=== PATIENT | male | born 1990 | race Caucasian/White ===

== ENCOUNTER 2021-12-07 18:46 | Emergency (ER) | payer OTHER ==
[2021-12-07] MEDS ORDERED: SODIUM CHLORIDE 0.9% 1,000 ML IV STA ×2 (19:09→20:55)
[2021-12-07] MEDS ORDERED: LORazepam 2 MG/ML INJ IV PRN ×3 (19:11)
[2021-12-07] MEDS ORDERED: THIAMINE 100 MG/ML 2 ML VIAL IM STA (19:11)
[2021-12-07] MEDS: THIAMINE 100 MG TAB PO SCH (19:45)
[2021-12-07 19:47] LABS: Basophils # (A) 0.1 k/uL (0-0.2); Basophils % (A) 1 %; Eosinophils # (A) 0.1 k/uL (0-0.7); Eosinophils % (A) 1 %; HCT 47.8 % (39.0-53.0); HGB 16.4 gm/dL (13.0-17.5); Lymphocytes # (A) 2.5 k/uL (1.0-4.8); Lymphocytes % (A) 34 %; MCH 30.2 pg (25.0-35.0); MCHC 34.2 g/dL (31.0-37.0); MCV 88.2 fL (80.0-100.0); Mean Platelet Volume 7.5; Monocytes # (A) 0.3 k/uL (0-1.0); Monocytes % (A) 4 %; Neutrophils # (A) 4.3 k/uL (1.3-7.7); Neutrophils % (A) 59 %; Platelet Count 236 k/uL (150-450); RBC 5.41 m/uL (4.30-5.90); RDW 11.6 % (11.5-15.5); WBC 7.4 k/uL (3.8-10.6)
[2021-12-07 20:08] LABS: ALT 19 U/L (4-49); AST 30 U/L (17-59); African American GFR (CKD) >90 (>60 ml/min/1.73 sqM); Albumin 4.9 g/dL (3.5-5.0); Alkaline Phosphatase 71 U/L (38-126); Anion Gap 11 mmol/L; Blood Urea Nitrogen 8 mg/dL (9-20); Calcium 9.5 mg/dL (8.4-10.2); Carbon Dioxide 26 mmol/L (22-30); Chloride 109 mmol/L (98-107); Glucose 107 mg/dL (74-99); Magnesium 1.9 mg/dL (1.6-2.3); Non-African American GFR(CKD) >90 (>60 ml/min/1.73 sqM); Potassium 3.9 mmol/L (3.5-5.1); Sodium 146 mmol/L (137-145); Total Bilirubin 0.5 mg/dL (0.2-1.3); Total Protein 8.2 g/dL (6.3-8.2)
[2021-12-07 20:10] LABS: Alcohol 252 mg/dL
--- NOTE | 2021-12-07 20:17 | CT ---
EXAMINATION TYPE: CT brain wo con DATE OF EXAM: 12/07/2021 COMPARISON: None HISTORY: delerium CT DLP: 1159.4 mGycm Automated exposure control for dose reduction was used. Ventricles have normal size. There is no mass effect or midline shift. There is no sign of intracrani al hemorrhage. Calvarium is intact. There is no evidence of cerebral edema. IMPRESSION: Normal unenhanced head CT scan.
[2021-12-07 20:49] LABS: Amphetamine Screen,Urine Not Detected (NotDetected); Barbiturate Screen,Urine Not Detected (NotDetected); Benzodiazepines Screen,Urine Not Detected (NotDetected); Cocaine Screen,Urine Not Detected (NotDetected); Methadone Screen, Urine Not Detected (NotDetected); Opiate Screen,Urine Not Detected (NotDetected); Oxycodone Screen, Urine Not Detected (NotDetected); Phencyclidine Screen,Urine Not Detected (NotDetected); Tricyclic Antidepressant,Urine Not Detected (NotDetected); Urn Cannabinoid Scrn Not Detected (NotDetected)
[2021-12-07] MEDS ORDERED: NALOXONE 0.4 MG/ML 1 ML VIAL IV PRN (20:53)
--- NOTE | 2021-12-07 22:42 | ED ---
General Adult HPI - General Chief complaint: Alcohol Stated complaint: Unknown Time Seen by Provider: 12/07/21 18:50 Source: patient, RN notes reviewed, old records reviewed Mode of arrival: ambulatory Limitations: no limitations - History of Present Illness Initial comments: Patient is a 31-year-old male with past medical history remarkable for alcohol abuse, alcohol withdrawal who presents emergency department after being found lying down in the hospital lobby. He states he believes he [place]. He states he relapsed and began drinking over the last 24 hours hard liquor. Denies any other drug use. Smokes tobacco. Denies any suicidal or homicidal ideations, attempts, plans. Denies any visual or auditory hallucinations. Does have a history of alcohol withdrawals. Currently states he is not feeling like his withdrawals. States he felt like he was going to lay down on the ground and fall sleep in the lobby which is why he was on the ground initially. Was conscious when he was found. Unknown if he fell. Has no acute trauma or injuries at this time. His no other acute complaints at this time. Is interested in outpatient rehab upon discharge. He is amenable to admission if necessary. He otherwise has no acute complaints at this time, including denying chest pain, shortness of breath, abdominal pain, nausea, vomiting, diarrhea. There is any fevers, chills, sick contacts. - Related Data Home Medications Medication Instructions Recorded Confirmed No Known Home Medications 12/07/21 12/07/21 Allergies Allergy/AdvReac Type Severity Reaction Status Date / Time No Known Allergies Allergy Verified 12/07/21 20:56 Review of Systems ROS Statement: Those systems with pertinent positive or pertinent negative responses have been documented in the HPI. Review of Systems: CONST: Denies fever EYES: Denies blurry vision ENT: Denies nasal congestion C/V: Denies Chest pain RESP: Denies shortness of breath GI: Denies abdominal pain : Denies dysuria SKIN: Denies rash. MSK: Denies joint pain. NEURO: Denies headache PSYCH: Denies suicidal and homicidal ideations/plans/attempts. Denies visual or auditory hallucinations. ROS Other: All systems not noted in ROS Statement are negative. Past Medical History Past Medical History: No Reported History Additional Past Medical History / Comment(s): ETOH abuse History of Any Multi-Drug Resistant Organisms: None Reported Past Surgical History: No Surgical Hx Reported Past Anesthesia/Blood Transfusion Reactions: No Reported Reaction Past Psychological History: Bipolar Smoking Status: Current every day smoker Past Alcohol Use History: Abuse, Daily Past Drug Use History: None Reported General Exam - General Exam Comments Initial Comments: General: Appears in no acute distress. Patient is acutely intoxicated with alcohol. HEAD: Normal with no signs of head trauma. No step-offs or deformities of the skull. Negative hernandez sign. Negative raccoon eye. EYES: PERRLA, EOMI, conjunctiva normal, no discharge. Pupils are 3 mm and equal bilaterally. ENT: Hearing grossly intact, normal oropharynx. RESPIRATORY: Clear breath sounds bilaterally. No wheezes, rales, or rhonchi. C/V: Mildly tachycardic with a regular rhythm. S1 and S2 auscultated. Peripheral pulses 2+ intact. ABD: Abd is soft, nontender, nondistended EXT: Normal range of motion, no obvious deformity SKIN: No rashes or lesions observed on exposed skin. NEURO: Alert and oriented x 4. Cranial nerves II-XII intact. No focal sensory or strength deficits. GCS is 15, as he is acutely intoxicated with alcohol. NIH is 0. Limitations: no limitations Course Vital Signs 12/07/21 12/07/21 18:54 21:25 Temperature 98.5 F Pulse Rate 109 H 88 Respiratory 18 18 Rate Blood Pressure 97/57 112/82 O2 Sat by Pulse 98 95 Oximetry Medical Decision Making - Medical Decision Making Based on the patient's presentation and physical exam, he does appear acutely intoxicated with alcohol. However he was found laying down in the lobby and he is having some questioning about how he initially got there. Therefore we will obtain CT brain without contrast in addition to basic labs, screening EKG. He'll be given fluid boluses. He was in agreement with this plan. Patient's EKG showed no signs of acute ischemia. Laboratory studies were remarkable for a mild hypernatremia of 146 and hyperchloremia of 109. UDS is negative. Covid is negative. Serum alcohol level is 252. CT brain showed no acute process. On reevaluation, patient remains acutely intoxicated with alcohol, with a level greater than 250. I discussed with him admission with discharge pending sobriety and further observation to ensure he does not enter alcohol withdrawals. He was in agreement this plan. Alcohol withdrawal protocol was ordered. I spoke with the admitting physician, Dr. Ibarra who accepted the patient. Patient was therefore admitted in stable condition to observation telemetry. - Lab Data Result diagrams: 12/07/21 19:34 12/07/21 19:34 Lab Results 12/07/21 12/07/21 12/07/21 Range/Units 19:34 19:34 20:16 WBC 7.4 (3.8-10.6) k/uL RBC 5.41 (4.30-5.90) m/uL Hgb 16.4 (13.0-17.5) gm/dL Hct 47.8 (39.0-53.0) % MCV 88.2 (80.0-100.0) fL MCH 30.2 (25.0-35.0) pg MCHC 34.2 (31.0-37.0) g/dL RDW 11.6 (11.5-15.5) % Plt Count 236 (150-450) k/uL MPV 7.5 Neutrophils % 59 % Lymphocytes % 34 % Monocytes % 4 % Eosinophils % 1 % Basophils % 1 % Neutrophils # 4.3 (1.3-7.7) k/uL Lymphocytes # 2.5 (1.0-4.8) k/uL Monocytes # 0.3 (0-1.0) k/uL Eosinophils # 0.1 (0-0.7) k/uL Basophils # 0.1 (0-0.2) k/uL Sodium 146 H (137-145) mmol/L Potassium 3.9 (3.5-5.1) mmol/L Chloride 109 H (98-107) mmol/L Carbon Dioxide 26 (22-30) mmol/L Anion Gap 11 mmol/L BUN 8 L (9-20) mg/dL Creatinine 0.70 (0.66-1.25) mg/dL Est GFR (CKD-EPI)AfAm >90 (>60 ml/min/1.73 sqM) Est GFR (CKD-EPI)NonAf >90 (>60 ml/min/1.73 sqM) Glucose 107 H (74-99) mg/dL Calcium 9.5 (8.4-10.2) mg/dL Magnesium 1.9 (1.6-2.3) mg/dL Total Bilirubin 0.5 (0.2-1.3) mg/dL AST 30 (17-59) U/L ALT 19 (4-49) U/L Alkaline Phosphatase 71 (38-126) U/L Total Protein 8.2 (6.3-8.2) g/dL Albumin 4.9 (3.5-5.0) g/dL Urine Opiates Screen Not Detected (NotDetected) Ur Oxycodone Screen Not Detected (NotDetected) Urine Methadone Screen Not Detected (NotDetected) Ur Propoxyphene Screen Not Detected (NotDetected) Ur Barbiturates Screen Not Detected (NotDetected) U Tricyclic Antidepress Not Detected (NotDetected) Ur Phencyclidine Scrn Not Detected (NotDetected) Ur Amphetamines Screen Not Detected (NotDetected) U Methamphetamines Scrn Not Detected (NotDetected) U Benzodiazepines Scrn Not Detected (NotDetected) Urine Cocaine Screen Not Detected (NotDetected) U Marijuana (THC) Screen Not Detected (NotDetected) Serum Alcohol 252 H* mg/dL - EKG Data -: EKG Interpreted by Me EKG Comments: 12-lead Electrocardiogram Interpretation Note EKG was reviewed and interpreted by myself. 12-lead ECG performed at 1925 is interpreted by me as revealing normal sinus rhythm at a rate of 92 beats per minute. [place] is normal. KS interval is 162 ms, QRS ration is 86 ms, QTc is 422 ms.. There were no ST or T wave abnormalities to suggest myocardial ischemia or injury. R wave progression across the precordium was satisfactory. By my interpretation this EKG is non-diagnostic for acute ischemia. Disposition Clinical Impression: Alcoholic intoxication Disposition: ADMITTED IP TO THIS HOSP Condition: Stable
--- NOTE | 2021-12-07 23:29 | P.HPIM ---
History of Present Illness H&P Date: 12/07/21 The patient is a 31 yo M with a PMH of EtOH abuse who presented to the ED after he was found laying down in [facility] lobby. The patient notes that he had recently relapsed from alcohol use, drinking about 2 pints of hard liquor in the past 24 hours. He reports being sober for 2 weeks and is interested in going back into therapy. He denied falls or loss of consciousness and noted that he laid down on the ground to sleep. He was intoxicated when he was found. He denied any physical complaints at the time of interview. Denied chest pain, SOB, fever, chills, cough, nausea, vomiting, abdominal pain, or diarrhea. He reports a history of being shaky with alcohol withdrawal in the past but denied withdrawal seizures or DTs. Laboratory evaluated noted a serum alcohol level of 252. A brain CT was unremarkable. Review of systems: Pertinent positives and negatives as discussed in HPI, a complete review of systems was performed and all other systems are negative. Physical examination: General: non toxic, no distress, appears at stated age, normal weight Derm: no unusual rashes/lesions no unusual ecchymoses, warm, dry Head: atraumatic, normocephalic, symmetric Eyes: EOMI, no lid lag, anicteric sclera, pupils equal round reactive to light ENT: Nose and ears atraumatic, no thrush, no pharyngeal erythema Neck: No thyromegaly, no cervical lymphadenopathy, trachea midline, supple Mouth: no lip lesion, mucus membranes moist Cardiovascular: S1S2 reg, no murmur, positive posterior tibial pulse bilateral, no edema, capillary refill less than 2 seconds Lungs: CTA bilateral, no rhonchi, no rales , no accessory muscle use Abdominal: soft, nontender to palpation, no guarding, no appreciable organomegaly, normal bowel sounds Ext: no gross muscle atrophy, muscle strength 5 out of 5 in all 4 extremities grossly, no contractures, Neuro: CN II-XI grossly intact, light touch intact all 4 extremities, finger to nose within normal limits, no outstretched hand tremors or tongue fasciculations Psych: Alert, oriented, appropriate affect Assessment/plan Alcohol intoxication -CIWA protocol -Thiamine -IVFs -Seizure and fall precautions -Advised on importance of cessation DVT prophylaxis -Heparin subq The patient is admitted with an anticipated less than 2 midnight stay for evaluation of Etoh abuse CODE STATUS: Full Code Discussed with: Patient Anticipated discharge date: in am Anticipated discharge place: Home Past Medical History Past Medical History: No Reported History Additional Past Medical History / Comment(s): ETOH abuse History of Any Multi-Drug Resistant Organisms: None Reported Past Surgical History: No Surgical Hx Reported Past Anesthesia/Blood Transfusion Reactions: No Reported Reaction Past Psychological History: Bipolar Smoking Status: Current every day smoker Past Alcohol Use History: Abuse, Daily Past Drug Use History: None Reported - Past Family History Father Family Medical History: Liver Disease Medications and Allergies Home Medications Medication Instructions Recorded Confirmed Type No Known Home Medications 12/07/21 12/07/21 History Allergies Allergy/AdvReac Type Severity Reaction Status Date / Time No Known Allergies Allergy Verified 12/07/21 20:56 Physical Exam Vitals: Vital Signs Temp Pulse Resp BP Pulse Ox 12/07/21 21:25 88 18 112/82 95 12/07/21 18:54 98.5 F 109 H 18 97/57 98 Intake and Output 12/07/21 12/07/21 12/08/21 14:59 22:59 06:59 Other: Weight 77.111 kg Results CBC & Chem 7: 12/07/21 19:34 12/07/21 19:34 Labs: Abnormal Lab Results - Last 24 Hours (Table) 12/07/21 Range/Units 19:34 Sodium 146 H (137-145) mmol/L Chloride 109 H (98-107) mmol/L BUN 8 L (9-20) mg/dL Glucose 107 H (74-99) mg/dL Serum Alcohol 252 H* mg/dL Thrombosis Risk Factor Assmnt - Choose All That Apply Any of the Below Risk Factors Present?: Yes Each Factor Represents 1 point: Obesity (BMI >25) Other Risk Factors: No Other congenital or acquired thrombophilia - If yes, enter type in comment: No Thrombosis Risk Factor Assessment Total Risk Factor Score: 1 Thrombosis Risk Factor Assessment Level: Low Risk
[2021-12-08] MEDS: HEPARIN SODIUM,PORCINE/PF 5,000 UNIT/0.5 ML SYRINGE SQ SCH ×3 (01:29→16:52)
[2021-12-08] MEDS: THIAMINE 100 MG TAB PO SCH ×2 (08:26→16:52)
--- NOTE | 2021-12-08 16:47 | P.PN ---
Progress Note - Text Progress Note Date: 12/08/21 (delayed charting seen at 1145) Patient is an 89-year-old male past medical history of alcohol abuse who presented to the ER with severe alcohol intoxication. Initial workup was negative. He admits to falling off the bandwagon after being sober for 51 days. Plan is to discharge him to an active alcohol treatment program in the morning. Patient seen and examined at bedside. Denies any chest pain or shortness of breath. Having some nausea and some headache. Feels like he has a bad hangover. General: non toxic, no distress, appears at stated age Derm: warm, dry Head: atraumatic, normocephalic, symmetric Eyes: EOMI, no lid lag, anicteric sclera Mouth: no lip lesion, mucus membranes moist Cardiovascular: S1S2 reg, no murmur, positive posterior tibial pulse bilateral, Lungs: CTA bilateral, no rhonchi, no rales , no accessory muscle use Abdominal: soft, nontender to palpation, no guarding, no appreciable organomegaly Ext: no gross muscle atrophy, no edema, no contractures Neuro: CN II-XI grossly intact, no focal neuro deficits Psych: Alert, oriented, appropriate affect Alcohol intoxication Hypernatremia - CIWA, Heparin SC, Likely discharge in AM
[2021-12-09] MEDS: HEPARIN SODIUM,PORCINE/PF 5,000 UNIT/0.5 ML SYRINGE SQ SCH ×2 (00:32→08:13)
[2021-12-09 08:09] VITALS: BP 114/75; PULSE 66; RESP 18; TEMP 97.5
[2021-12-09] MEDS: THIAMINE 100 MG TAB PO SCH (08:13)
--- NOTE | 2021-12-09 15:30 | P.DS ---
Providers Date of admission: 12/07/21 20:53 Expected date of discharge: 12/09/21 Attending physician: Jax Ibarra MD Primary care physician: Stated None Hospital Course: Discharge Diagnosis: Alcohol intoxication Hypernatremia Hospital Course: Patient is an 31-year-old male past medical history of alcohol abuse who presented to the ER with severe alcohol intoxication. Initial workup was negative. He admits to falling off the bandwagon after being sober for 51 days. Patient did well and was determined stable for discharge. He is going into an inpatient treatment program. Patient seen and examined at bedside. Doing much better. Nausea is resolved and headache is resolved. Excited to be going back to treatment. Vital signs reviewed and stable. General: non toxic, no distress, appears at stated age Derm: warm, dry Head: atraumatic, normocephalic, symmetric Eyes: EOMI, no lid lag, anicteric sclera Mouth: no lip lesion, mucus membranes moist Cardiovascular: S1S2 reg, no murmur, positive posterior tibial pulse bilateral, Lungs: CTA bilateral, no rhonchi, no rales , no accessory muscle use Abdominal: soft, nontender to palpation, no guarding, no appreciable organomegaly Ext: no gross muscle atrophy, no edema, no contractures Neuro: CN II-XI grossly intact, no focal neuro deficits Psych: Alert, oriented, appropriate affect A total of 17 minutes of time were spent preparing this complex discharge summary . Patient Condition at Discharge: Stable Plan - Discharge Summary Discharge Rx Participant: Yes New Discharge Prescriptions: Continue No Known Home Medications Discharge Medication List No Known Home Medications 12/07/21 [History] Follow up Appointment(s)/Referral(s): None,Stated [Primary Care Provider] - 1 Week [facility] [NON-STAFF] - 1 Week Patient Instructions/Handouts: Alcohol Intoxication (DC) Activity/Diet/Wound Care/Special Instructions: STOP AT HOME [address], [facility] [address] TO P/U BELONGINGS (PER [employer] WORK)THEN TO [facility], [facility], [address] [facility] [id number]. Discharge Disposition: HOME SELF-CARE
== END 2021-12-09 10:47 | disposition home or self-care (01) ==
LOC: EC 18:46 → 6NMEDSUR 20:53
PROVIDERS: ADMIT Internal Medicine; ATTEND Internal Medicine
DX: F10.129 Alcohol abuse with intoxication, unspecified (principal); F31.9 Bipolar disorder, unspecified; F17.200 Nicotine dependence, unspecified, uncomplicated; Z20.822 Contact with and (suspected) exposure to COVID-19; Y90.8 Blood alcohol level of 240 mg/100 ml or more
CPT/HCPCS: 99285; 96360; 96361; 36415; 93005; 80053; 83735; 85025; 80306; 87635; 70450; G0378 ×3; G0480; J1644 ×2; 80320

== ENCOUNTER 2022-04-15 13:00 | Observation (INO) | payer OTHER ==
[2022-04-15] MEDS ORDERED: LORazepam 1 MG TAB PO STA (13:16)
--- NOTE | 2022-04-15 13:20 | ED ---
General Adult HPI - General Chief complaint: Altered Mental Status Stated complaint: mental health Time Seen by Provider: 04/15/22 13:05 Source: patient, RN notes reviewed, old records reviewed Mode of arrival: ambulatory Limitations: no limitations - History of Present Illness Initial comments: This is a 32-year-old male who presents emergency Department complaining that he wants to kill himself. Patient states she was just released from [facility] and since then he's got up and drank heavily and wants to kill himself and wants to jump in front of a truck to kill himself. Patient is very angry and somewhat hostile in the room when I interview him. Patient states he doesn't even know why he came in case he wishes he was still. Patient denies any drug use currently and states it's been about 2 weeks but he pretty much we'll do any drugs on a normal basis. Patient denies any physical complaints today. Patient denies any chest pain difficulty breathing shortest breath per patient denies any fever chills or cough per patient denies abdominal pain patient denies nausea vomiting diarrhea. - Related Data Home Medications Medication Instructions Recorded Confirmed No Known Home Medications 12/07/21 12/07/21 Allergies Allergy/AdvReac Type Severity Reaction Status Date / Time No Known Allergies Allergy Verified 04/15/22 13:06 Review of Systems ROS Statement: Those systems with pertinent positive or pertinent negative responses have been documented in the HPI. ROS Other: All systems not noted in ROS Statement are negative. Past Medical History Past Medical History: No Reported History Additional Past Medical History / Comment(s): ETOH abuse History of Any Multi-Drug Resistant Organisms: None Reported Past Surgical History: No Surgical Hx Reported Past Anesthesia/Blood Transfusion Reactions: No Reported Reaction Past Psychological History: Bipolar Smoking Status: Current every day smoker Past Alcohol Use History: Abuse, Daily Past Drug Use History: None Reported - Past Family History Father Family Medical History: Liver Disease General Exam - General Exam Comments Initial Comments: GENERAL: Patient is well-developed and well-nourished. Patient is nontoxic and well- hydrated and is in no acute distress. Patient appears intoxicated ENT: Neck is soft and supple. No significant lymphadenopathy is noted. Oropharynx is clear. Moist mucous membranes. Neck has full range of motion without eliciting any pain. EYES: The sclera were anicteric and conjunctiva were pink and moist. Extraocular movements were intact and pupils were equal round and reactive to light. Eyelids were unremarkable. PULMONARY: Unlabored respirations. Good breath sounds bilaterally. No audible rales rhonchi or wheezing was noted. CARDIOVASCULAR: There is a regular rate and rhythm without any murmurs gallops or rubs. ABDOMEN: Soft and nontender with normal bowel sounds. SKIN: Skin is clear with no lesions or rashes and otherwise unremarkable. NEUROLOGIC: Patient is alert and oriented x3. Cranial nerves II through XII are grossly intact. Motor and sensory are also intact. Normal speech, volume and content. Symmetrical smile. MUSCULOSKELETAL: Normal extremities with adequate strength and full range of motion. LYMPHATICS: No significant lymphadenopathy is noted PSYCHIATRIC: Patient is angry and a little bit hostile and he is also very depressed stating over and over again that he wants to kill himself. Patient's plan is to jump in front of traffic Limitations: no limitations Course Vital Signs 04/15/22 13:01 Temperature 97 F L Pulse Rate 101 H Respiratory 20 Rate Blood Pressure 119/80 O2 Sat by Pulse 97 Oximetry Medical Decision Making - Medical Decision Making Patient received Ativan in the emergency department. Patient's alcohol was 265. I spoke with some physicians agreed to admit the patient admitted the patient I consulted psychiatry. - Lab Data Result diagrams: 04/15/22 13:46 04/15/22 13:46 Lab Results 04/15/22 04/15/22 Range/Units 13:46 13:46 WBC 8.0 (3.8-10.6) k/uL RBC 5.27 (4.30-5.90) m/uL Hgb 16.0 (13.0-17.5) gm/dL Hct 46.8 (39.0-53.0) % MCV 88.8 (80.0-100.0) fL MCH 30.4 (25.0-35.0) pg MCHC 34.2 (31.0-37.0) g/dL RDW 12.9 (11.5-15.5) % Plt Count 323 (150-450) k/uL MPV 7.5 Neutrophils % 58 % Lymphocytes % 32 % Monocytes % 7 % Eosinophils % 0 % Basophils % 1 % Neutrophils # 4.6 (1.3-7.7) k/uL Lymphocytes # 2.6 (1.0-4.8) k/uL Monocytes # 0.6 (0-1.0) k/uL Eosinophils # 0.0 (0-0.7) k/uL Basophils # 0.0 (0-0.2) k/uL Sodium 146 H (137-145) mmol/L Potassium 4.2 (3.5-5.1) mmol/L Chloride 105 (98-107) mmol/L Carbon Dioxide 25 (22-30) mmol/L Anion Gap 16 mmol/L BUN 11 (9-20) mg/dL Creatinine 0.90 (0.66-1.25) mg/dL Est GFR (CKD-EPI)AfAm >90 (>60 ml/min/1.73 sqM) Est GFR (CKD-EPI)NonAf >90 (>60 ml/min/1.73 sqM) Glucose 112 H (74-99) mg/dL Calcium 9.2 (8.4-10.2) mg/dL Magnesium 2.1 (1.6-2.3) mg/dL Total Bilirubin 0.4 (0.2-1.3) mg/dL AST 26 (17-59) U/L ALT 35 (4-49) U/L Alkaline Phosphatase 86 (38-126) U/L Total Protein 8.4 H (6.3-8.2) g/dL Albumin 5.1 H (3.5-5.0) g/dL Serum Alcohol 265 H* mg/dL Disposition Clinical Impression: Alcohol intoxication, Depression, Suicidal ideations Disposition: ADMITTED IP TO THIS [facility] Referrals: None,Stated [Primary Care Provider] - 1-2 days Time of Disposition: 14:28
[2022-04-15] MEDS ORDERED: LORazepam 2 MG/ML INJ IV STA (13:21)
[2022-04-15] MEDS ORDERED: SODIUM CHLORIDE 0.9% 1,000 ML IV ONE ×2 (13:21→14:31)
[2022-04-15 14:12] LABS: ALT 35 U/L (4-49); AST 26 U/L (17-59); African American GFR (CKD) >90 (>60 ml/min/1.73 sqM); Albumin 5.1 g/dL (3.5-5.0); Alkaline Phosphatase 86 U/L (38-126); Anion Gap 16 mmol/L; Blood Urea Nitrogen 11 mg/dL (9-20); Calcium 9.2 mg/dL (8.4-10.2); Carbon Dioxide 25 mmol/L (22-30); Chloride 105 mmol/L (98-107); Glucose 112 mg/dL (74-99); Magnesium 2.1 mg/dL (1.6-2.3); Non-African American GFR(CKD) >90 (>60 ml/min/1.73 sqM); Potassium 4.2 mmol/L (3.5-5.1); Sodium 146 mmol/L (137-145); Total Bilirubin 0.4 mg/dL (0.2-1.3); Total Protein 8.4 g/dL (6.3-8.2)
[2022-04-15 14:14] LABS: Alcohol 265 mg/dL
[2022-04-15 14:22] LABS: Basophils % (A) 1 %; Eosinophils % (A) 0 %; HCT 46.8 % (39.0-53.0); Lymphocytes # (A) 2.6 k/uL (1.0-4.8); Lymphocytes % (A) 32 %; MCH 30.4 pg (25.0-35.0); MCHC 34.2 g/dL (31.0-37.0); MCV 88.8 fL (80.0-100.0); Mean Platelet Volume 7.5; Monocytes # (A) 0.6 k/uL (0-1.0); Monocytes % (A) 7 %; Neutrophils # (A) 4.6 k/uL (1.3-7.7); Neutrophils % (A) 58 %; Platelet Count 323 k/uL (150-450); RBC 5.27 m/uL (4.30-5.90); RDW 12.9 % (11.5-15.5)
[2022-04-15] MEDS ORDERED: THIAMINE 100 MG/ML 2 ML VIAL IM STA (14:33)
[2022-04-15] MEDS ORDERED: LORazepam 2 MG/ML INJ IV PRN ×3 (14:33)
[2022-04-15 15:18] LABS: Amphetamine Screen,Urine Not Detected (NotDetected); Barbiturate Screen,Urine Not Detected (NotDetected); Benzodiazepines Screen,Urine Not Detected (NotDetected); Cocaine Screen,Urine Not Detected (NotDetected); Methadone Screen, Urine Not Detected (NotDetected); Opiate Screen,Urine Not Detected (NotDetected); Oxycodone Screen, Urine Not Detected (NotDetected); Phencyclidine Screen,Urine Not Detected (NotDetected); Tricyclic Antidepressant,Urine Not Detected (NotDetected); Urn Cannabinoid Scrn Not Detected (NotDetected)
--- NOTE | 2022-04-15 15:57 | P.HPIM ---
History of Present Illness H&P Date: 04/15/22 History of Presenting Illness: Patient is a 32-year-old male with a past medical history of chronic alcohol abuse, bipolar disorder, and nicotine dependence. He presented to the emergency department intoxicated with reports that he wants to kill himself by jumping in front of a truck. Patient reports he was just discharged yesterday from [facility]. Patient reports after discharge he went to the post office to get his mail, mooney his check and alcohol so he could drink heavily throughout the night. Patient reports he just wants to kill himself and in a ddition to suicidal ideations with a plan, patient also reports feeling anxious and paranoid. Patient denies having verbal, tactile, or auditory hallucinations. Patient denies having any falls or injuries. Patient denies feeling homicidal. He denies having any other complaints including headache, lightheadedness, dizziness, changes in vision or hearing, chest pain, palpitations, or shortness of breath. Patient underwent full evaluation in the emergency department. CBC and CMP showing no significant abnormalities. Urine drug screen negative. Serum alcohol level was 265. Patient was admitted under our services with consultation to psychiatry. Patient to be admitted to observation unit until he is clinically sober and can be medically discharged to inpatient psychiatric unit. Review of systems: Pertinent positives and negatives as discussed in HPI, a complete review of systems was performed and all other systems are negative. Physical exam: Vital signs reviewed and stable. General: Nontoxic, no distress and appears stated age. Derm: Skin warm and dry, normal coloration for ethnicity. Head: Atraumatic, normocephalic and symmetric. Eyes: EOMs intact, no lid lag, and anicteric sclera Mouth: no lip lesions, mucus membranes moist Cardiovascular: regular rate and rhythm with normal S1S2, no murmur, positive posterior tibial pulses bilaterally, and cap refill < 2 seconds. Lungs: Respirations even, regular, and unlabored on room air. Lungs CTA bilaterally, no rhonchi, no rales, no wheezing, and no accessory muscle usage. Abdominal: soft, nontender to palpation, no guarding, no appreciable organomegaly Ext: ROM intact. No gross muscle atrophy, no edema, no contractures Neuro: Speech clear, face symmetrical and CN II-XII grossly intact with no noted focal neuro deficits Psych: Alert and oriented to person, place, time, and situation. Patient anxious with rapid and pressured speech at times. Patient did cooperate with assessment and answer questions appropriately. Assessment and Plan of Care: Alcohol intoxication -[facility] Protocol with symptom triggered medication management with benzodiazepines. -Thiamine 100 mg twice a day -Multivitamin daily -Folate 1 mg daily -Seizure, fall, aspiration, and elopement precautions in place. -Urine drug screen negative -Telemetry monitoring. Suicidal ideation with a plan Bipolar disorder -Consult to psychiatry -Suicide precautions Nicotine dependence -Recommend smoking cessation. -Nicotine patch. The patient is admitted with an anticipated less than 2 midnight stay for evaluation of alcohol intoxication CODE STATUS: Full code DVT prophylaxis: Lovenox Discussed with: Patient and RN Anticipated discharge date: Tomorrow Anticipated discharge place inpatient psychiatric unit A total of 42 minutes was spent on the care of this complex patient more than 50% of the time was spent in counseling and care coordination. Avtar Hobbs NP rendered care for this patient independently, reviewed the findings and plan as documented in the note above. I did not physically speak with or examine the patient on this date. Past Medical History Past Medical History: No Reported History Additional Past Medical History / Comment(s): ETOH abuse History of Any Multi-Drug Resistant Organisms: None Reported Past Surgical History: No Surgical Hx Reported Past Anesthesia/Blood Transfusion Reactions: No Reported Reaction Past Psychological History: Bipolar Smoking Status: Current every day smoker Past Alcohol Use History: Abuse, Daily Past Drug Use History: None Reported - Past Family History Father Family Medical History: Liver Disease Medications and Allergies Home Medications Medication Instructions Recorded Confirmed Type No Known Home Medications 12/07/21 04/15/22 History Allergies Allergy/AdvReac Type Severity Reaction Status Date / Time No Known Allergies Allergy Verified 04/15/22 14:51 Physical Exam Osteopathic Statement: *. No significant issues noted on an osteopathic structural exam other than those noted in the History and Physical/Consult. Vitals: Vital Signs Temp Pulse Resp BP Pulse Ox 04/15/22 13:01 97 F L 101 H 20 119/80 97 Intake and Output 04/15/22 04/15/22 04/15/22 06:59 14:59 22:59 Other: Weight 81.647 kg Results CBC & Chem 7: 04/15/22 13:46 04/15/22 13:46 Labs: Abnormal Lab Results - Last 24 Hours (Table) 04/15/22 Range/Units 13:46 Sodium 146 H (137-145) mmol/L Glucose 112 H (74-99) mg/dL Total Protein 8.4 H (6.3-8.2) g/dL Albumin 5.1 H (3.5-5.0) g/dL Serum Alcohol 265 H* mg/dL
[2022-04-16] MEDS: ENOXAPARIN 40 MG/0.4 ML SYRINGE SQ SCH ×2 (00:59→09:31)
[2022-04-16] MEDS ORDERED: MULTIVITAMINS, THERA 1 EACH TAB PO SCH (09:00)
[2022-04-16] MEDS ORDERED: FOLIC ACID 1 MG TAB PO SCH (09:00)
[2022-04-16] MEDS ORDERED: NICOTINE 21MG/24HR PATCH TRANSDERM SCH (09:00)
--- NOTE | 2022-04-16 09:11 | P.DS ---
Providers Date of admission: 04/15/22 14:31 Expected date of discharge: 04/16/22 Attending physician: Tash Gutiérrez DO Consults: 04/15/22 14:31 Consult Physician Urgent Consulting Provider: Asael Carl Consult Reason/Comments: Depression, suicidal ideations Do you want consulting provider notified?: Yes Primary care physician: Stated None Hospital Course: Discharge Diagnosis: Alcohol intoxication, alcohol level on presentation was 265. Patient hospitalized overnight for observation and detox, he is now clinically sober and stable for discharge at this. Suicidal ideation with a plan, maintain suicide precautions at all times. Pt being discharged inpatient psychiatric unit. Bipolar disorder Nicotine dependence Hospital Course: Patient is a 32-year-old male with a past medical history of chronic alcohol abuse, bipolar disorder, and nicotine dependence. He presented to the emergency department on 04/15/22 intoxicated with reports that he wants to kill himself and plans to do so by jumping in front of a truck. Patient reports he was just discharged the day prior from [facility]. Patient reports after discharge he went to the post office to get his mail, mooney his check and purchased alcohol so he could drink heavily throughout the night. Patient reports he drank so much because he just wants to kill himself. In addition to his suicidal ideations with a plan, the patient also reports feeling anxious and paranoid. Patient denies having verbal, tactile, or auditory hallucinations. Patient denies having any falls or injuries. Patient denies feeling homicidal. He denies having any other complaints including headache, lightheadedness, di zziness, changes in vision or hearing, chest pain, palpitations, or shortness of breath. Patient underwent full evaluation in the emergency department. CBC and CMP showing no significant abnormalities. Urine drug screen negative. Serum alcohol level was 265. Patient was admitted under our services with consultation to psychiatry. Patient was admitted to observation unit overnight for detox, he is now clinically sober and continues to report having suicidal ideations with a plan stating he wants to jump i front of a "[employer]" truck. Pt is medically stable, vital signs are unremarkable with blood pressure 113/63, heart rate 72, respiratory rate 20, temperature 97.6F, SpO2 of 95% on room air. Patient medically cleared and stable for discharge to inpatient psychiatric unit at this time. Physical exam: Vital signs reviewed and stable. General: Nontoxic, no distress and appears stated age. Derm: Skin warm and dry, normal coloration for ethnicity. Head: Atraumatic, normocephalic and symmetric. Eyes: EOMs intact, no lid lag, and anicteric sclera Mouth: no lip lesions, mucus membranes moist Cardiovascular: regular rate and rhythm with normal S1S2, no murmur, positive posterior tibial pulses bilaterally, and cap refill < 2 seconds. Lungs: Respirations even, regular, and unlabored on room air. Lungs CTA bilaterally, no rhonchi, no rales, no wheezing, and no accessory muscle usage. Abdominal: soft, nontender to palpation, no guarding, no appreciable organomegaly Ext: ROM intact. No gross muscle atrophy, no edema, no contractures Neuro: Speech clear, face symmetrical and CN II-XII grossly intact with no noted focal neuro deficits Psych: Alert and oriented to person, place, time, and situation. Patient calm and cooperative at this time, continues to report suicide ideation with a plan. A total of 31 minutes of time were spent preparing this complex discharge summary. Pt was discharged on 04/16/22 at 8:59 AM. I reviewed the documentation as provided by the ANURAG above, who is the original author of this note. I agree with the documented assessment and plan, with the following changes: none Patient Condition at Discharge: Stable Plan - Discharge Summary Discharge Rx Participant: Yes New Discharge Prescriptions: New Folic Acid 1 mg PO DAILY tab Multivitamins, Thera [Multivitamin (formulary)] 1 each PO DAILY tab Thiamine [Vitamin B-1] 100 mg PO BID-W/MEALS tab Nicotine 21Mg/24Hr Patch [Habitrol] 1 patch TRANSDERM DAILY patch Discharge Medication List Folic Acid 1 mg PO DAILY tab 04/16/22 [Rx] Multivitamins, Thera [Multivitamin (formulary)] 1 each PO DAILY tab 04/16/22 [Rx] Nicotine 21Mg/24Hr Patch [Habitrol] 1 patch TRANSDERM DAILY patch 04/16/22 [Rx] Thiamine [Vitamin B-1] 100 mg PO BID-W/MEALS tab 04/16/22 [Rx] Activity/Diet/Wound Care/Special Instructions: Patient is Medically Stable for Transfer to Inpatient Psychiatric Unit. Discharge Disposition: TRANSFER TO PSYCH HOSP/UNIT
[2022-04-16] MEDS: THIAMINE 100 MG TAB PO SCH ×2 (09:30→16:53)
--- NOTE | 2022-04-16 10:43 | P.CN ---
Psychiatric Consult - . Consult date: 04/16/22 Consult:: IDENTIFYING DATA: This patient is a single, unemployed, 32-year-old male with significant history of alcohol use disorder and depression who presents to the hospital with a chief complaint of suicidal ideation with a plan to get himself hit by a truck. HISTORY OF PRESENT ILLNESS: The patient presented to the hospital on 04/15/2022, to emergency department manager for suicidal ideation with plan to walk into traffic. Patient was notably intoxicated on presentation in the emergency department. The patient was admitted to the medical floor for evaluation and management of alcohol intoxication. Psychiatry has been consulted for his suicidal ideation. Upon evaluation on the medical floor, the patient continues to endorse significant symptoms of depression. He reports hopelessness, helplessness, low motivation, and suicidal ideation with a plan to walk into traffic. The patient reports that he was recently discharged from [facility] in [place] after a week long inpatient psychiatric admission for depression and suicidal ideation. He reports that he was started on Prozac however did not sisal picker any of his medications or continue with any outpatient services. He states that he is "sick of [facility]" and that is why he came to [place]. The patient reports that he has been feeling increasingly depressed and suicidal for most of his adult life. Further complicating his psychiatric symptoms is his heavy alcohol use. The patient reports that he has been drinking at least a pint of liquor per day. He states that his last drink was yesterday. The patient does not endorse any significant symptoms of bipolar disorder or history of overt manic episodes. The patient does report a significant history of substance use. He does state that he smokes a couple cigarettes per day. He drinks daily, approximately a pint of liquor per day for many years. He has had numerous rehabilitation stays with the last time being at [place] earlier this year. He is currently not open with any Alcoholics Anonymous or any outpatient substance abuse treatment. The patient reports that he has not been in adherent with much outpatient therapy or outpatient treatment as he constantly moved from place to place and is currently homeless. He reports that he has no belongings at all. The patient does report a history of polysubstance abuse. He states he last used methamphetamines approximately 2-3 weeks ago. He reports that he has dabbled with crack cocaine as well. The patient does report a significant history of neglect. He reports that his mother was a severe alcoholic. He states that he began drinking long side his mother when he was 15 years of age. He reports significant symptoms of cluster B personality disorder including chronic suicidal ideation, fears of abandonment, and mood dysregulation. PAST PSYCHIATRIC HISTORY: Patient has a history of depression and alcohol use disorder. The patient is unable to recall Prozac at this time. He reports multiple inpatient psychiatric admissions with the last time being within the last 2-3 weeks and [facility]. Patient denies any psychiatric outpatient follow-up. Patient reports prior suicide attempt by overdose many years ago. PAST MEDICAL HISTORY: Past Medical History: No Reported History Additional Past Medical History / Comment(s): ETOH abuse History of Any Multi-Drug Resistant Organisms: None Reported Past Surgical History: No Surgical Hx Reported Past Anesthesia/Blood Transfusion Reactions: No Reported Reaction Past Psychological History: Bipolar Smoking Status: Current every day smoker Past Alcohol Use History: Abuse, Daily Past Drug Use History: None Reported ALLERGIES: NO KNOWN DRUG ALLERGIES CHEMICAL DEPENDENCY HISTORY: as per HPI. FAMILY PSYCHIATRIC/SUBSTANCE USE HISTORY: The patient reports that his mother severe alcoholic. SOCIAL HISTORY: Patient was born and raised in [place] however moved around between [place], [place], [place], and [place]. He is currently homeless. He graduated from an [employer] program. He is single, never , and has no children. He reports no current legal issues. MENTAL STATUS EXAM: General Appearance: Patient appears to be stated age is alert, pleasant, and cooperative. Patient appears to have fair hygiene and grooming wearing hospital gown with fair eye contact. Multiple tattoos. Behavior: Patient is calmly lying in bed without any agitated behavior. Speech: Patient's speech is fluent and nonpressured. Mood/Affect: Patient reports their mood is "depressed", affect is congruent and constricted. Suicidality/Homicidality: Patient endorses suicidal ideation however denies any homicidal ideation. Perceptions: Patient denies any visual hallucinations and denies any auditory hallucinations Though content/process: There is no evidence of any delusional thought content and thought process is linear and goal-directed. Memory and concentration: AOX3, grossly intact for the purposes of this session. Can spell "WORLD" backwards Judgment and insight: Poor IMPRESSIONS: Major depressive disorder, recurrent, severe Alcohol use disorder Cluster B personality disorder PLAN: -At this time patient DOES meet criteria for inpatient psychiatric admission. The patient remains at imminent risk of harm to self or others and is endorsing suicidal ideation with a plan. Furthermore, the patient is at increased risk above the general population due to his co-occurring alcohol use disorder. -Would recommend the following medication changes/additions: We will hold on medications at this time. Once patient is transferred to the psychiatric unit, we will reevaluate which medications to reinitiate. -Continue 1:1 sitter for safety -Cannot leave AMA at this time. Patient will need a petition and certification if attempting to leave AMA. -When medically stable, patient is eligible for transfer to a psych bed when available. 04/16/22 11:38
[2022-04-16 19:42] VITALS: RESP 16
[2022-04-17 01:46] VITALS: BP 127/75; PULSE 50; TEMP 98.1
== END 2022-04-17 02:19 ==
LOC: EC 13:00 → 4SSUR 14:31
PROVIDERS: ADMIT Internal Medicine; ATTEND Internal Medicine
DX: F10.129 Alcohol abuse with intoxication, unspecified (principal); R45.851 Suicidal ideations; F31.9 Bipolar disorder, unspecified; F17.200 Nicotine dependence, unspecified, uncomplicated; Y90.8 Blood alcohol level of 240 mg/100 ml or more; Z83.79 Family history of other diseases of the digestive system
CPT/HCPCS: 96361 ×2; 82075; 96372; 96374; 99285; 36415; 80053; 83735; 85025; 80306; 87635; G0378 ×3; G0480; J2060; J3411; 80320

== ENCOUNTER 2022-04-17 02:02 | Inpatient (IN) | payer MEDICAID ==
[2022-04-17] MEDS ORDERED: LORazepam 1 MG TAB PO PRN (02:22)
[2022-04-17] MEDS ORDERED: ACETAMINOPHEN TAB 325 MG TAB PO PRN (02:22)
[2022-04-17] MEDS ORDERED: HALOPERIDOL LACTATE 5 MG/ML 1 ML VIAL IM PRN (02:22)
[2022-04-17] MEDS ORDERED: MAG HYDROX/AL HYDROX/SIMETH 30 ML CUP PO PRN (02:22)
[2022-04-17] MEDS ORDERED: MAGNESIUM HYDROXIDE 2,400 MG/10 ML CUP PO PRN (02:22)
[2022-04-17] MEDS ORDERED: LORazepam 2 MG/ML INJ IM PRN (02:25)
[2022-04-17] MEDS ORDERED: haloperidoL 5 MG TAB PO PRN (02:26)
[2022-04-17] MEDS: NICOTINE 14MG/24HR PATCH TRANSDERM SCH (09:06)
[2022-04-17] MEDS ORDERED: FLUoxetine HCL 10 MG CAP PO STA (09:58)
[2022-04-17] MEDS ORDERED: NALTREXONE HCL 50 MG TAB PO STA (09:59)
--- NOTE | 2022-04-17 11:52 | P.HP ---
Psychiatric H&P - . H&P Date: 04/17/22 History & Physical: Allergies Allergy/AdvReac Type Severity Reaction Status Date / Time No Known Allergies Allergy Verified 04/15/22 14:51 Vital Signs Temp 97.1 F L 04/17/22 02:39 Pulse 62 04/17/22 02:39 Resp 18 04/17/22 02:39 BP 118/56 04/17/22 02:39 Pulse Ox 97 04/17/22 02:39 FiO2 Intake & Output 04/16/22 04/17/22 04/17/22 18:59 06:59 18:59 Weight 74.843 kg 04/17/22 11:51 IDENTIFYING DATA: Patient is a single, unemployed, 32-year-old male with significant history of alcohol use disorder and depression who presented to the hospital on 04/15/2022 for suicidal ideation in the context of alcohol intoxication. HPI: Patient presented to the hospital on 04/15/2022 presenting with suicidal ideation with a plan to walk into traffic. Patient was noted to be intoxicated at that time. He was evaluated by psychiatry on the medical floor and endorse significant symptoms of hopelessness, helplessness, low motivation, and suicidal ideation with a plan. The patient was therefore recommended for inpatient psychiatric admission and he signed himself voluntarily on to the psychiatric unit. The patient was most recently discharged from [facility] in [place] after a weeklong inpatient psychiatric admission for depression and suicidal ideation. The patient however was nonadherent with any aftercare or with his prescribed Prozac. He decided to leave [place] and come to [place] because he was "sick of [facility]." The patient reports that his depression appears to be better since coming onto the psychiatric unit. He does express a strong desire to quit alcohol. He reports that he would like to call the access number to set up rehab. The patient is wary about starting medications however after significant discussion is agreeable to starting Prozac and naltrexone for management of depression, anxiety, and alcohol use disorder. In regards to substance use, the patient reports that he was drinking a pint of liquor per day for many years. He has been to rehab numerous times including [place] earlier this year. He is not open with any outpatient substance abuse treatment more with Alcoholics Anonymous. He is currently homeless. He also en gages in occasional methamphetamine use. He also reports a history of crack cocaine use as well. PAST PSYCHIATRIC HISTORY: Patient has been previously diagnosed major depressive disorder and alcohol use disorder. The patient recalls only being prescribed Prozac. He reports 2-3 prior inpatient psychiatric hospitalizations. Patient denies any psychiatric outpatient follow-up. Does report a previous suicide attempt by overdose many years ago. PMH: Past Medical History: No Reported History Additional Past Medical History / Comment(s): ETOH abuse History of Any Multi-Drug Resistant Organisms: None Reported Past Surgical History: No Surgical Hx Reported Past Anesthesia/Blood Transfusion Reactions: No Reported Reaction Past Psychological History: Bipolar Smoking Status: Current every day smoker Past Alcohol Use History: Abuse, Daily Past Drug Use History: None Reported ALLERGIES: NO KNOWN DRUG ALLERGIES CHEMICAL DEPENDENCY HISTORY: as per HPI FAMILY PSYCHIATRIC/SUBSTANCE USE HISTORY: The patient reports that his mother was an alcoholic. SOCIAL HISTORY: Patient was born and raised in [place] however moved around between [place], [place], [place], [place]. He is currently homeless. He reports that he spent most of his childhood in a bar. He states that he was exposed alcohol by his mother was a severe alcoholic. He states he began drinking at the age of 15. He is single, never , and has no children. He reports no current legal issues. He graduated from an [employer] program. MENTAL STATUS EXAM: General Appearance: Patient appears to be stated age is alert, directable, and attempts to cooperate. Patient appears to have fair hygiene and grooming. Balding with a prominent ospina. Nature themed tattoos on his bilateral arms. Behavior: Patient is seated without any agitated behavior. Eye contact is appropriate. Speech: Patient's speech is fluent and nonpressured. Mood/Affect: Patient reports their mood is depressed, affect is congruent and constricted. Suicidality/Homicidality: Patient denies having any homicidal ideation intent or plan. Denies any suicidal ideations intent or plan Perceptions: Patient denies any visual hallucinations and denies any auditory hallucinations Though content/process: There is no evidence of any delusional thought content and thought process is linear and goal-directed. Memory and concentration: AOX3, grossly intact for the purposes of this session. Can spell "WORLD" backwards Judgment and insight: Improving STRENGTHS/WEAKNESSES: Strength is that the patient is resilient. Weakness is that patient engages and polysubstance abuse (especially alcohol). INTELLECT: average IMPRESSIONS: Major depressive disorder, recurrent, severe Alcohol use disorder Cluster B personality disorder PLAN: -Patient is admitted under voluntary status to MHU for stabilization of psychiatric symptoms and safety. Patient signed adult voluntary form and medication consent and is placed in patient's chart. -Medications : Will start patient on Naltrexone 50 mg by mouth daily for alcohol use disorder Prozac 30 mg daily for depression/anxiety with plans to increase to 40 mg tomorrow. -Ativan and Haldol PRN for agitation/aggression -Patient was counselled on substance abuse and desired to cut back on use -Patient was informed of the risks, benefits and side effects of the medication and patient verbally consented to taking the medications. Patient signed med consent form and was placed in chart. -Internal Medicine consult to perform medical evaluation and physical. -NRT - nicotine patch -SW on board for discharge planning. Encourage patient to participate in groups to work on coping skills. 04/17/22 11:52
[2022-04-18] MEDS: NICOTINE 14MG/24HR PATCH TRANSDERM SCH (09:30)
[2022-04-18] MEDS: NALTREXONE HCL 50 MG TAB PO SCH (09:30)
[2022-04-18] MEDS: FLUoxetine HCL 20 MG CAP PO SCH ×2 (09:30→11:39)
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
--- NOTE | 2022-04-18 11:46 | P.PN ---
Subjective Progress Note Date: 04/18/22 Principal diagnosis: IMPRESSIONS: Major depressive disorder, recurrent, severe Alcohol use disorder Cluster B personality disorder Rule out bipolar disorder Subjective data: Please disregard the subjective data that was inserted in the note with the same date as today Patient admits that he has a severe problem with alcohol use and that he has been drinking quite heavily He also admits making several suicide attempts especially in the last year He admits feeling overwhelmed and helpless and hopeless Objective data/MENTAL STATUS EXAM: General Appearance: Patient appears to be stated age is alert, directable, and attempts to cooperate. Patient appears to have fair hygiene and grooming. Balding with a prominent ospina. Nature themed tattoos on his bilateral arms. Behavior: Patient is seated without any agitated behavior. Eye contact is appropriate. Speech: Patient's speech is fluent and nonpressured. Mood/Affect: Patient reports their mood is depressed, affect is congruent and constricted. Suicidality/Homicidality: Patient denies having any homicidal ideation intent or plan. Denies any suicidal ideations intent or plan Perceptions: Patient denies any visual hallucinations and denies any auditory hallucinations Though content/process: There is no evidence of any delusional thought content and thought process is linear and goal-directed. Memory and concentration: AOX3, Judgment and insight: Impaired STRENGTHS/WEAKNESSES: Strength is that the patient is resilient. Weakness is that patient engages and polysubstance abuse (especially alcohol). INTELLECT: average IMPRESSIONS: Major depressive disorder, recurrent, severe Alcohol use disorder Cluster B personality disorder PLAN: -Patient is admitted under voluntary status to MHU for stabilization of psychiatric symptoms and safety. -Medications : Continue Naltrexone 50 mg by mouth daily for alcohol use disorder Prozac 30 mg daily for depression/anxiety with plans to increase to 40 mg tomorrow. -Ativan and Haldol PRN for agitation/aggression -Patient was counselled on substance abuse and desired to cut back on use -Patient was informed of the risks, benefits and side effects of the medication and patient verbally consented to taking the medications. Patient signed med consent form and was placed in chart. -Internal Medicine consult to perform medical evaluation and physical. -NRT - nicotine patch -SW on board for discharge planning. Encourage patient to participate in groups to work on coping skills. Lalit Cr M.D. 04/18/2022 Objective - Vital Signs Vital signs: Vital Signs Temp 98.2 F 04/18/22 07:04 Pulse 70 04/18/22 07:04 Resp 18 04/17/22 02:39 BP 122/66 04/18/22 07:04 Pulse Ox 97 04/18/22 07:04 FiO2
--- NOTE | 2022-04-18 13:21 | P.MDCNMH ---
History of Present Illness H&P Date: 04/18/22 Chief Complaint: Medical management/clearance 32-year-old man with a medical history of a call abuse, tobacco abuse presented with suicidal ideation the context of alcohol intoxication. Medicine was consulted by psychiatry service for medical clearance as well as valuation. Patient has noted complaints at this time, denies fevers, chills, nausea, vomiting, chest pain, palpitations, syncopal, presyncope, constipation, diarrhea, cough, dyspnea, dysuria, dyschezia, numbness/weakness of extremities. Patient denies any medical issues, for which she takes no medications at home. Upon my evaluation, patient is afebrile, weight 2/56, heart rate 62, 97% on room air. No labs to review. No images review. All Systems reviewed and pertinent positives and negatives noted in HPI, all other symptoms are negative Gen: awake, alert HEENT: normocephalic, atraumatic, good hearing acuity, moist mucous membranes Resp: good air exchange, breathing comfortably with no accessory muscle use CVS: good distal perfusion x 4, GI: soft, NTTP, ND : no SPT, no CVAT, holder catheter not present MSK: no pitting edema, no clubbing Neuro: non-focal, moving all extremities Psych: cooperative, euthymic mood Assessment/plan: Alcohol abuse Tobacco abuse -Cessation counseling recommended -Nicotine lozenges when necessary if required -Thiamine, folate, multivitamin recommended -Monitor for withdrawal Suicidal ideation -Care per primary team Thank you for this consult. A member of our team is available 31/05, should any questions or concerns arise, please reach out via perfect serve. Past Medical History Past Medical History: No Reported History Additional Past Medical History / Comment(s): ETOH abuse, depressed and suicidal in past History of Any Multi-Drug Resistant Organisms: None Reported Past Surgical History: No Surgical Hx Reported Past Anesthesia/Blood Transfusion Reactions: No Reported Reaction Past Psychological History: Anxiety, Bipolar, Depression Additional Psychological History / Comment(s): depression and suicidal in past and present Smoking Status: Current some day smoker Past Alcohol Use History: Abuse, Daily Additional Past Alcohol Use History / Comment(s): drinks a pint a day per pt, used cocaine last a month ago Past Drug Use History: Cocaine - Past Family History Father Family Medical History: Liver Disease Medications and Allergies Home Medications Medication Instructions Recorded Confirmed Type Folic Acid 1 mg PO DAILY tab 04/16/22 Rx Multivitamins, Thera [Multivitamin 1 each PO DAILY tab 04/16/22 Rx (formulary)] Nicotine 21Mg/24Hr Patch [Habitrol] 1 patch TRANSDERM DAILY patch 04/16/22 Rx Thiamine [Vitamin B-1] 100 mg PO BID-W/MEALS tab 04/16/22 Rx Allergies Allergy/AdvReac Type Severity Reaction Status Date / Time No Known Allergies Allergy Verified 04/15/22 14:51 Physical Exam Osteopathic Statement: *. No significant issues noted on an osteopathic structural exam other than those noted in the History and Physical/Consult. Vitals: Vital Signs Temp Pulse BP Pulse Ox 04/18/22 07:04 98.2 F 70 122/66 97 Cranial Nerve Examination - Cranial Nerves Cranial Nerve II- Optic: Intact Cranial Nerve III- Oculomotor: Intact Cranial Nerve IV- Trochlear: Intact Cranial Nerve V- Trigeminal: Intact Cranial Nerve - Abducens: Intact Cranial Nerve VII- Facial: Intact Cranial Nerve VIII- Auditory: Intact Cranial Nerve IX- Glossopharyngeal: Intact Cranial Nerve X- Vagus: Intact Cranial Nerve XI- Accessory: Intact Cranial Nerve XII- Hypoglossal: Intact
[2022-04-19] MEDS: FLUoxetine HCL 20 MG CAP PO SCH (08:13)
[2022-04-19] MEDS: NICOTINE 14MG/24HR PATCH TRANSDERM SCH (08:14)
[2022-04-19] MEDS: NALTREXONE HCL 50 MG TAB PO SCH (08:14)
--- NOTE | 2022-04-19 10:51 | P.PN ---
Subjective Progress Note Date: 04/19/22 Principal diagnosis: IMPRESSIONS: Major depressive disorder, recurrent, severe Alcohol use disorder Cluster B personality disorder Rule out bipolar disorder Subjective data: The patient reports that he is taking 1 day at a time He states that the depression seems to fluctuate throughout the day He denies that he has any actual suicidal ideations or plans at this time He admits that he wants to get better and that he was to take his treatment for his depression and stopped drinking; Objective data/MENTAL STATUS EXAM: General Appearance: Patient appears to be stated age is alert, directable, and attempts to cooperate. Patient appears to have fair hygiene and grooming. Balding with a prominent ospina. Nature themed tattoos on his bilateral arms. Behavior: Patient is seated without any agitated behavior. Eye contact is appropriate. Speech: Patient's speech is fluent and nonpressured. Mood/Affect: Patient reports their mood is depressed, affect is congruent and constricted. Suicidality/Homicidality: Patient denies having any homicidal ideation intent or plan. Denies any suicidal ideations intent or plan Perceptions: Patient denies any visual hallucinations and denies any auditory hallucinations Though content/process: There is no evidence of any delusional thought content and thought process is linear and goal-directed. Memory and concentration: AOX3, Judgment and insight: Latta simple STRENGTHS/WEAKNESSES: Strength is that the patient is resilient. Weakness is that patient engages and polysubstance abuse (especially alcohol). INTELLECT: average IMPRESSIONS: Major depressive disorder, recurrent, severe Alcohol use disorder Cluster B personality disorder PLAN: -Patient is admitted under voluntary status to MHU for stabilization of psychiatric symptoms and safety. -Medications : Continue Naltrexone 50 mg by mouth daily for alcohol use disorder Prozac 30 mg daily for depression/anxiety with plans to increase to 40 mg tomorrow. -Ativan and Haldol PRN for agitation/aggression -Patient was counselled on substance abuse and desired to cut back on use -Patient was informed of the risks, benefits and side effects of the medication and patient verbally consented to taking the medications. Patient signed med consent form and was placed in chart. -Internal Medicine consult to perform medical evaluation and physical. -NRT - nicotine patch -SW on board for discharge planning. Encourage patient to participate in groups to work on coping skills. Lalit Cr M.D. 04/19/2022 Objective - Vital Signs Vital signs: Vital Signs Temp 97.0 F L 04/19/22 08:14 Pulse 99 04/19/22 08:14 Resp 20 04/19/22 08:14 BP 120/65 04/19/22 08:14 Pulse Ox 97 04/18/22 07:04 FiO2 Intake & Output 04/18/22 04/19/22 04/19/22 18:59 06:59 18:59 Weight 79.2 kg
[2022-04-20 06:42] VITALS: BP 127/64; PULSE 75; RESP 16; TEMP 97.6
[2022-04-20] MEDS: FLUoxetine HCL 20 MG CAP PO SCH (10:01)
[2022-04-20] MEDS: NICOTINE 14MG/24HR PATCH TRANSDERM SCH (10:09)
[2022-04-20] MEDS: NALTREXONE HCL 50 MG TAB PO SCH (10:09)
--- NOTE | 2022-04-20 13:42 | P.DS ---
Providers Date of admission: 04/17/22 02:20 Expected date of discharge: 04/20/22 Attending physician: Asael Carl MD Consults: 04/17/22 02:22 Consult Physician Routine Consulting Provider: Vinny Physician Consult Reason/Comments: h and p Do you want consulting provider notified?: Yes, Notify in am Primary care physician: Stated None - Discharge Diagnosis(es) (1) Major depressive disorder, recurrent severe without psychotic features Current Visit: Yes Status: Acute Priority: High (2) Alcohol use disorder Current Visit: Yes Status: Chronic Priority: Medium (3) Cluster B personality disorder Current Visit: Yes Status: Chronic Priority: Medium Hospital Course: Admission HPI: Patient is a single, unemployed, 32-year-old male with significant history of alcohol use disorder and depression who presented to the hospital on 04/15/2022 for suicidal ideation in the context of alcohol intoxication. Patient presented to the hospital on 04/15/2022 presenting with suicidal ideation with a plan to walk into traffic. Patient was noted to be intoxicated at that time. He was evaluated by psychiatry on the medical floor and endorse significant symptoms of hopelessness, helplessness, low motivation, and suicidal ideation with a plan. The patient was therefore recommended for inpatient psychiatric admission and he signed himself voluntarily on to the psychiatric unit. The patient was most recently discharged from [facility] in [place] after a weeklong inpatient psychiatric admission for depression and suicidal ideation. The patient however was nonadherent with any aftercare or with his prescribed Prozac. He decided to leave [place] and come to [place] because he was "sick of [facility]." The patient reports that his depression appears to be better since coming onto the psychiatric unit. He does express a strong desire to quit alcohol. He reports that he would like to call the access number to set up rehab. The patient is wary about starting medications however after significant discussion is agreeable to starting Prozac and naltrexone for management of depression, anxiety, and alcohol use disorder. In regards to substance use, the patient reports that he was drinking a pint of liquor per day for many years. He has been to rehab numerous times including [place] earlier this year. He is not open with any outpatient substance abuse treatment more with [facility] Anonymous. He is currently homeless. He also engages in occasional methamphetamine use. He also reports a history of crack cocaine use as well. Patient has been previously diagnosed major depressive disorder and alcohol use disorder. The patient recalls only being prescribed Prozac. He reports 2-3 prior inpatient psychiatric hospitalizations. Patient denies any psychiatric outpatient follow-up. Does report a previous suicide attempt by overdose many years ago. Hospital course: Upon admission to the unit patient was initially presenting with depression and suicidal ideation the context of heavy alcohol use. Patient was however directable and agreeable to commence treatment. Patient got along well with other patients on the unit and followed unit protocol. Patient was compliant with the medications and denied any side effects throughout hospital course. Patient was started on Prozac for management of depression and anxiety and naltrexone for alcohol use disorder. Patient spoke of his stressors and engaged in therapy both group and individual. Patient was also seen by medical team for history and physical exam. Over the course of the hospitalization, the patient displayed significant improvement regards to his mood and future orientation. He attended groups with a high level of participation. The patient also contacted the access team for rehab however due to insurance issues, is not able to go to rehab straight from our psychiatric unit. Patient expresses understanding. On the day of discharge, the patient is not reporting any suicidal or homicidal ideation, intention, and/or plan. The patient expresses no auditory or visual hallucinations. He denies any paranoia or other delusions. The patient denies any access to firearms or other weapons. Patient does have a significant history of alcohol use however was counseled on abstaining from all substances including alcohol and marijuana. He plans to attend rehab in the near future. The patient was counseled at length and the importance of medication adherence appropriate outpatient follow-up. Mental status exam: General Appearance: Patient appears to be stated age is alert, pleasant, and cooperative. Patient is in no acute distress and has fair hygiene and grooming Behavior: Patient is calmly seated without any agitated behavior. Speech: Patient's speech is fluent and nonpressured. Mood/Affect: Patient reports their mood is "much better", affect is congruent and euthymic to bright. Suicidality/Homicidality: Patient denies having any suicidal or homicidal ideation intent or plan. Perceptions: Patient denies any auditory or visual hallucinations. Though content/process: There is no evidence of any delusional thought content and thought process is linear and goal-directed. The patient is future oriented. Memory and concentration: AOX3, grossly intact for the purposes of this session. Can spell "WORLD" backwards correctly. Judgment and insight: Improved with guarded prognosis Vital Signs Temp 97.6 F 04/20/22 06:41 Pulse 75 04/20/22 06:41 Resp 16 04/20/22 06:41 BP 127/64 04/20/22 06:41 Pulse Ox 98 04/20/22 06:41 FiO2 Intake & Output 04/19/22 04/20/22 04/20/22 18:59 06:59 18:59 Weight 79.2 kg Allergies Allergy/AdvReac Type Severity Reaction Status Date / Time No Known Allergies Allergy Verified 04/15/22 14:51 Impression: Major depressive disorder, recurrent, severe Alcohol use disorder Cluster B personality disorder Plan: -Continue with discharge today as patient has improved and stabilized psychiatrically and is not currently an imminent threat to himself and/or others. Patient will remain at chronically elevated risk for harm to self and/or others due to his homelessness and polysubstance abuse. -Continue medications: Naltrexone 50 mg by mouth daily for alcohol use disorder Prozac 40 mg by mouth daily for depression/anxiety -Patient was counseled on the need for medication compliance and appropriate follow-up at mental health and also primary care for medical issues. Patient verbalized understanding and agreed. -Social work to arrange for and conduct family meeting to ensure safety upon discharge and answer any questions/concerns. Social work also to arrange for patients follow up appointments for psychiatric care along with follow up with primary care provider. -Patient counseled on abstaining from recreational drugs and marijuana and alcohol. Was informed/educated on the adverse effects on their physical and mental health. Patient verbally agreed and understood. -Patient was instructed to return to the hospital or seek immediate medical care if their psychiatric or medical symptoms do worsen or reoccur. -Psychoeducation and supportive therapy provided to patient. Risks and benefits of pharmacological treatment versus the risks and benefits of nontreatment weight and discussed. Informed consent discussion held. Common side effects of psychotropics discussed such as, but not limited to headache, GI disturbance, sexual dysfunction, movement disorders, sedation, and orthostatic hypotension. Life threatening and blackbox warnings of prescribed medications also discussed. Potential risks of operating a vehicle or heavy machinery discussed with patient at length. Advised on importance of compliance and a reliable and responsible manner. Patient advised to review FDA consumer labeling of all medications prior to taking. Patient verbalized understanding of potential risks, and agrees with current treatment plan. Patient advised to medically contact physician/emergency personnel if any acute changes in condition occur. Patient Condition at Discharge: Stable Plan - Discharge Summary New Discharge Prescriptions: New FLUoxetine HCL [PROzac] 40 mg PO DAILY 30 Days cap Naltrexone HCl [Revia] 50 mg PO DAILY 30 Days tab Continue Folic Acid 1 mg PO DAILY tab Multivitamins, Thera [Multivitamin (formulary)] 1 each PO DAILY tab Thiamine [Vitamin B-1] 100 mg PO BID-W/MEALS tab Nicotine 21Mg/24Hr Patch [Habitrol] 1 patch TRANSDERM DAILY 30 Days patch Discharge Medication List Folic Acid 1 mg PO DAILY tab 04/16/22 [Rx] Multivitamins, Thera [Multivitamin (formulary)] 1 each PO DAILY tab 04/16/22 [Rx] Thiamine [Vitamin B-1] 100 mg PO BID-W/MEALS tab 04/16/22 [Rx] FLUoxetine HCL [PROzac] 40 mg PO DAILY 30 Days cap 04/20/22 [Rx] Naltrexone HCl [Revia] 50 mg PO DAILY 30 Days tab 04/20/22 [Rx] Nicotine 21Mg/24Hr Patch [Habitrol] 1 patch TRANSDERM DAILY 30 Days patch 04/20/22 [Rx] Follow up Appointment(s)/Referral(s): [facility] [Other] - 1 Week (Pt is [facility] of [facility] provided [facility] number) [facility] [Other] - 1 Week (Pt is unsure of which [facility]. provided access number.) [facility] [NON-STAFF] - 1 Week Patient Instructions/Handouts: Depression (DC) Activity/Diet/Wound Care/Special Instructions: Activity and diet as tolerated. Avoid the use of street drugs and alcohol. Take all medications as prescribed. When you are in need of refills on your medications please contact your medical provider and/or outpatient psychiatrist to have this done. Please go to scheduled outpatient appointment for aftercare treatment. If symptoms return or become worse, call the crisis line at and/or go to the nearest emergency room for evaluation Discharge Disposition: HOME SELF-CARE
== END 2022-04-20 14:32 | disposition home or self-care (01) | DRG 885 ==
LOC: 3MHU 02:20
PROVIDERS: ADMIT Psychiatry & Neurology Psychiatry; ATTEND Psychiatry & Neurology Psychiatry
DX: F33.2 Major depressive disorder, recurrent severe without psychotic features (principal); F10.29 Alcohol dependence with unspecified alcohol-induced disorder; F14.11 Cocaine abuse, in remission; F41.9 Anxiety disorder, unspecified; F60.89 Other specific personality disorders; F17.200 Nicotine dependence, unspecified, uncomplicated; Z71.6 Tobacco abuse counseling; Z79.899 Other long term (current) drug therapy; Z56.0 Unemployment, unspecified; Z59.00 Homelessness unspecified; F15.90 Other stimulant use, unspecified, uncomplicated; Z91.51 Personal history of suicidal behavior; Z81.1 Family history of alcohol abuse and dependence

== ENCOUNTER 2022-04-21 01:28 | Emergency (ER) | payer OTHER ==
[2022-04-21 01:36] VITALS: BP 123/77; PULSE 122; RESP 20; TEMP 98.4
--- NOTE | 2022-04-21 01:36 | ED ---
Psych HPI - General Chief Complaint: Psychiatric Symptoms Stated Complaint: ETOH, Mental health Time Seen by Provider: 04/21/22 01:36 Source: patient, RN notes reviewed, old records reviewed Mode of arrival: ambulatory - History of Present Illness Initial Comments: This is a 32-year-old male to the emergency department for evaluation patient presents for alcohol intoxication. Patient is also severely depressed. Patient states he needs evaluation for psychiatry. She is intoxicated admits to drinking today. Patient states he wants to go to [facility] for mental health out MD Complaint: suicidal ideation, feels depressed -: hour(s) Associated Psychiatric Symptoms: depression, suicidal ideation History of same: Yes Quality: constant Improves With: none Context: recent alcohol abuse Treatments Prior to Arrival: placed on mental health hold If Self Harm: admits thoughts of self harm - Related Data Previous Rx's Medication Instructions Recorded Folic Acid 1 mg PO DAILY tab 04/16/22 Multivitamins, Thera [Multivitamin 1 each PO DAILY tab 04/16/22 (formulary)] Thiamine [Vitamin B-1] 100 mg PO BID-W/MEALS tab 04/16/22 FLUoxetine HCL [PROzac] 40 mg PO DAILY 30 Days cap 04/20/22 Naltrexone HCl [Revia] 50 mg PO DAILY 30 Days tab 04/20/22 Nicotine 21Mg/24Hr Patch [Habitrol] 1 patch TRANSDERM DAILY 30 Days 04/20/22 patch Allergies Allergy/AdvReac Type Severity Reaction Status Date / Time No Known Allergies Allergy Verified 04/21/22 01:35 Review of Systems ROS Statement: Those systems with pertinent positive or pertinent negative responses have been documented in the HPI. ROS Other: All systems not noted in ROS Statement are negative. Past Medical History Past Medical History: No Reported History Additional Past Medical History / Comment(s): ETOH abuse, depressed and suicidal in past History of Any Multi-Drug Resistant Organisms: None Reported Past Surgical History: No Surgical Hx Reported Past Anesthesia/Blood Transfusion Reactions: No Reported Reaction Past Psychological History: Anxiety, Bipolar, Depression Smoking Status: Current every day smoker Past Alcohol Use History: Abuse, Daily Past Drug Use History: Cocaine - Past Family History Father Family Medical History: Liver Disease General Exam Limitations: no limitations General appearance: alert, in no apparent distress, appears intoxicated, anxious Head exam: Present: atraumatic, normocephalic, normal inspection Eye exam: Present: normal appearance, PERRL, EOMI. Absent: scleral icterus, conjunctival injection, periorbital swelling ENT exam: Present: normal exam, mucous membranes moist Neck exam: Present: normal inspection. Absent: tenderness, meningismus, lymphadenopathy Respiratory exam: Present: normal lung sounds bilaterally. Absent: respiratory distress, wheezes, rales, rhonchi, stridor Cardiovascular Exam: Present: regular rate, normal rhythm, normal heart sounds. Absent: systolic murmur, diastolic murmur, rubs, gallop, clicks GI/Abdominal exam: Present: soft, normal bowel sounds. Absent: distended, tenderness, guarding, rebound, rigid Extremities exam: Present: normal inspection, full ROM, normal capillary refill. Absent: tenderness, pedal edema, joint swelling, calf tenderness Back exam: Present: normal inspection Neurological exam: Present: alert, oriented X3, CN II-XII intact Psychiatric exam: Present: normal affect, normal mood Skin exam: Present: warm, dry, intact, normal color. Absent: rash Course Vital Signs 04/21/22 01:33 Temperature 98.4 F Pulse Rate 122 H Respiratory 20 Rate Blood Pressure 123/77 O2 Sat by Pulse 97 Oximetry - Reevaluation(s) Reevaluation #1: 04/21/22 05:48 medical record is reviewed Reevaluation #2: 04/21/22 05:48 medically clear for psychiatry Disposition Clinical Impression: Depression, Alcohol use disorder Disposition: HOME SELF-CARE Condition: Fair Instructions (If sedation given, give patient instructions): Depression (ED), Abuse of Alcohol (ED) Is patient prescribed a controlled substance at d/c from ED?: No Referrals: None,Stated [Primary Care Provider] - 1-2 days
[2022-04-21] MEDS ORDERED: LORazepam 1 MG TAB PO STA (01:41)
== END 2022-04-21 07:05 | disposition home or self-care (01) ==
LOC: EC 01:28
DX: F17.200 Nicotine dependence, unspecified, uncomplicated (principal); F32.A Depression, unspecified; F10.20 Alcohol dependence, uncomplicated
CPT/HCPCS: 82075; 99284

== ENCOUNTER 2022-04-22 07:11 | Inpatient (IN) | payer MEDICAID, OTHER ==
--- NOTE | 2022-04-22 07:41 | ED ---
General Adult HPI - General Chief complaint: Psychiatric Symptoms Stated complaint: Mental Health Time Seen by Provider: 04/22/22 07:13 Source: patient, RN notes reviewed, old records reviewed Mode of arrival: ambulatory Limitations: no limitations - History of Present Illness Initial comments: 32-year-old male presented emergency department for psychiatric evaluation. Patient states he is feeling hopeless. He's having thoughts of suicide. He has no specific plan at this time. He denies physical complaints. He states he was recently admitted to the mental health floor. He states his medications are not working and he feels he needs an adjustment. - Related Data Home Medications Medication Instructions Recorded Confirmed Multivitamins, Thera [Multivitamin 1 tab PO DAILY 04/22/22 04/22/22 (formulary)] Previous Rx's Medication Instructions Recorded Folic Acid 1 mg PO DAILY tab 04/16/22 Thiamine [Vitamin B-1] 100 mg PO BID-W/MEALS tab 04/16/22 FLUoxetine HCL [PROzac] 40 mg PO DAILY 30 Days cap 04/20/22 Naltrexone HCl [Revia] 50 mg PO DAILY 30 Days tab 04/20/22 Nicotine 21Mg/24Hr Patch [Habitrol] 1 patch TRANSDERM DAILY 30 Days 04/20/22 patch Allergies Allergy/AdvReac Type Severity Reaction Status Date / Time No Known Allergies Allergy Verified 04/22/22 09:56 Review of Systems ROS Statement: Those systems with pertinent positive or pertinent negative responses have been documented in the HPI. ROS Other: All systems not noted in ROS Statement are negative. Past Medical History Past Medical History: No Reported History Additional Past Medical History / Comment(s): ETOH abuse, depressed and suicidal in past History of Any Multi-Drug Resistant Organisms: None Reported Past Surgical History: No Surgical Hx Reported Past Anesthesia/Blood Transfusion Reactions: No Reported Reaction Past Psychological History: Anxiety, Bipolar, Depression Smoking Status: Current every day smoker Past Alcohol Use History: Abuse, Daily Past Drug Use History: Cocaine - Past Family History Father Family Medical History: Liver Disease General Exam Limitations: no limitations General appearance: alert, in no apparent distress Head exam: Present: atraumatic, normocephalic Eye exam: Present: normal appearance, PERRL ENT exam: Present: normal exam Neck exam: Present: normal inspection. Absent: tenderness, meningismus Respiratory exam: Present: normal lung sounds bilaterally. Absent: respiratory distress, wheezes Cardiovascular Exam: Present: regular rate, normal rhythm GI/Abdominal exam: Present: soft. Absent: distended, tenderness, guarding Extremities exam: Present: normal inspection, normal capillary refill. Absent: pedal edema Neurological exam: Present: alert, oriented X3, CN II-XII intact. Absent: motor sensory deficit Psychiatric exam: Present: depressed, flat affect, suicidal ideation Skin exam: Present: warm, dry, intact. Absent: cyanosis, diaphoretic Course Vital Signs 04/22/22 07:19 Temperature 97.4 F L Pulse Rate 101 H Respiratory 18 Rate Blood Pressure 122/78 O2 Sat by Pulse 97 Oximetry - Reevaluation(s) Reevaluation #1: 04/22/22 07:41 Cleared for EPS Medical Decision Making - Medical Decision Making 32-year-old male presenting for psychiatric evaluation. Patient had been medically cleared and evaluated by [facility]. He is felt to require inpatient psychiatric evaluation treatment. He is not a resident of this [facility]. Currently awaiting either transfer or admission to this institution for further psychiatric care. - Lab Data Lab Results 04/22/22 Range/Units 07:35 Urine Opiates Screen Not Detected (NotDetected) Ur Oxycodone Screen Not Detected (NotDetected) Urine Methadone Screen Not Detected (NotDetected) Ur Propoxyphene Screen Not Detected (NotDetected) Ur Barbiturates Screen Not Detected (NotDetected) U Tricyclic Antidepress Not Detected (NotDetected) Ur Phencyclidine Scrn Not Detected (NotDetected) Ur Amphetamines Screen Not Detected (NotDetected) U Methamphetamines Scrn Not Detected (NotDetected) U Benzodiazepines Scrn Detected H (NotDetected) Urine Cocaine Screen Not Detected (NotDetected) U Marijuana (THC) Screen Not Detected (NotDetected) Disposition Clinical Impression: Depression, Suicidal ideations, Alcohol use disorder Disposition: ADMITTED IP TO THIS HOSP Condition: Stable Is patient prescribed a controlled substance at d/c from ED?: No Referrals: None,Stated [Primary Care Provider] - 1-2 days Time of Disposition: 13:41
[2022-04-22 08:03] LABS: Amphetamine Screen,Urine Not Detected (NotDetected); Barbiturate Screen,Urine Not Detected (NotDetected); Benzodiazepines Screen,Urine Detected (NotDetected); Cocaine Screen,Urine Not Detected (NotDetected); Methadone Screen, Urine Not Detected (NotDetected); Opiate Screen,Urine Not Detected (NotDetected); Oxycodone Screen, Urine Not Detected (NotDetected); Phencyclidine Screen,Urine Not Detected (NotDetected); Tricyclic Antidepressant,Urine Not Detected (NotDetected); Urn Cannabinoid Scrn Not Detected (NotDetected)
[2022-04-22] MEDS ORDERED: LORazepam 1 MG TAB PO PRN (16:33)
[2022-04-22] MEDS ORDERED: ACETAMINOPHEN TAB 325 MG TAB PO PRN (16:33)
[2022-04-22] MEDS ORDERED: MAG HYDROX/AL HYDROX/SIMETH 30 ML CUP PO PRN (16:33)
[2022-04-22] MEDS ORDERED: MAGNESIUM HYDROXIDE 2,400 MG/10 ML CUP PO PRN (16:33)
[2022-04-22] MEDS ORDERED: haloperidoL 5 MG TAB PO PRN (16:41)
[2022-04-22] MEDS ORDERED: HALOPERIDOL LACTATE 5 MG/ML 1 ML VIAL IM PRN (16:43)
[2022-04-22] MEDS ORDERED: hydrOXYzine HCL 50 MG/ML 1 ML VIAL IM PRN (16:45)
[2022-04-22] MEDS ORDERED: hydrOXYzine pamoate 25 MG CAP PO PRN (16:45)
[2022-04-22] MEDS: FLUoxetine HCL 20 MG CAP PO SCH (17:49)
[2022-04-22] MEDS: NICOTINE 14MG/24HR PATCH TRANSDERM SCH (17:49)
[2022-04-22] MEDS: THIAMINE 100 MG TAB PO SCH (17:49)
[2022-04-22] MEDS: FOLIC ACID 1 MG TAB PO SCH (17:49)
[2022-04-23 06:48] VITALS: RESP 16
[2022-04-23] MEDS: NALTREXONE HCL 50 MG TAB PO SCH (10:03)
[2022-04-23] MEDS: FLUoxetine HCL 20 MG CAP PO SCH (10:03)
[2022-04-23] MEDS: MULTIVITAMINS, THERA 1 EACH TAB PO SCH (10:03)
[2022-04-23] MEDS: THIAMINE 100 MG TAB PO SCH ×2 (10:03→17:20)
[2022-04-23] MEDS: FOLIC ACID 1 MG TAB PO SCH (10:03)
[2022-04-23] MEDS: NICOTINE 14MG/24HR PATCH TRANSDERM SCH (10:04)
[2022-04-23 11:14] LABS: LDL Cholesterol,Calculated 46.5 mg/dL (0.0-131.0)
--- NOTE | 2022-04-23 14:05 | P.HP ---
Psychiatric H&P - . H&P Date: 04/23/22 History & Physical: Allergies Allergy/AdvReac Type Severity Reaction Status Date / Time No Known Allergies Allergy Verified 04/22/22 09:56 Vital Signs Temp 97.4 F L 04/23/22 06:23 Pulse 85 04/23/22 06:23 Resp 16 04/23/22 06:23 BP 130/68 04/23/22 06:23 Pulse Ox 97 04/22/22 07:19 FiO2 Intake & Output 04/22/22 04/23/22 04/23/22 18:59 06:59 18:59 Weight 79.379 kg Laboratory Last Values Estimated Ave Glu mg/dL 106 04/23/22 06:21 Hemoglobin A1c 5.3 % (0.0-6.0) 04/23/22 06:21 Triglycerides 118.00 mg/dL (0.00-149.00) 04/23/22 06:21 Cholesterol 109.00 mg/dL (0.00-200.00) 04/23/22 06:21 LDL Cholesterol, Calc 46.5 mg/dL (0.0-131.0) 04/23/22 06:21 VLDL Cholesterol, Calc 23.60 mg/dL (5.00-40.00) 04/23/22 06:21 HDL Cholesterol 38.90 mg/dL (40.00-60.00) L 04/23/22 06:21 Cholesterol/HDL Ratio 2.80 Ratio 04/23/22 06:21 TSH 2.370 mIU/L (0.465-4.680) 04/23/22 06:21 Urine Opiates Screen Not Detected (NotDetected) 04/22/22 07:35 Ur Oxycodone Screen Not Detected (NotDetected) 04/22/22 07:35 Urine Methadone Screen Not Detected (NotDetected) 04/22/22 07:35 Ur Propoxyphene Screen Not Detected (NotDetected) 04/22/22 07:35 Ur Barbiturates Screen Not Detected (NotDetected) 04/22/22 07:35 U Tricyclic Antidepress Not Detected (NotDetected) 04/22/22 07:35 Ur Phencyclidine Scrn Not Detected (NotDetected) 04/22/22 07:35 Ur Amphetamines Screen Not Detected (NotDetected) 04/22/22 07:35 U Methamphetamines Scrn Not Detected (NotDetected) 04/22/22 07:35 U Benzodiazepines Scrn Detected (NotDetected) H 04/22/22 07:35 Urine Cocaine Screen Not Detected (NotDetected) 04/22/22 07:35 U Marijuana (THC) Screen Not Detected (NotDetected) 04/22/22 07:35 Coronavirus (PCR) Not Detected (Not Detectd) 04/22/22 13:45 04/23/22 14:05 IDENTIFYING DATA: Patient is a single, unemployed, 32-year-old male with significant history of alcohol use disorder and depression who presented to the hospital on 04/21/2022 for suicidal ideation in the context of alcohol intoxication. HPI: Patient presented to the hospital on 04/21/2022 presenting with suicidal ideation. The patient was most recently released from the psychiatric unit on 0 04/20/2022 after a voluntary stay for suicidal ideation the context of heavy alcohol use. The patient is currently homeless. The patient reports that he was staying in the park [place] the [place] from the hospital however continued to feel hopeless and helpless and decided to come back to the hospital for suicidal ideation. He also reports that he relapsed into drinking alcohol as soon as he left the hospital. He and continues to endorse the same symptoms of hopelessness, helplessness, low motivation, and suicidal ideation. He was subsequently readmitted back to her psychiatric unit. The patient initially had a plan and goal to go to rehab however due to insurance issues, was unable to set this up. He continues to express a strong desire to go back to rehab. The patient has been drinking almost a pint of liquor per day. He reports his last drink was just prior to his presentation at the hospital. He has been to rehab numerous times including [facility] earlier this year. He is not open with any outpatient substance abuse treatment more with Alcoholics Anonymous. He is currently homeless. He also engages in occasional methamphetamine use. He also reports a history of crack cocaine use as well. PAST PSYCHIATRIC HISTORY: Patient has been previously diagnosed major depressive disorder and alcohol use disorder. The patient was last discharged from our psychiatric unit on 04/20/2022 on a regimen of Prozac and naltrexone. Patient was scheduled to follow-up with [facility] in [place] in [facility] however did not return to his home county. He wishes to stay in the [facility] area. He does report a previous suicide attempt by overdose many years ago. PMH: Past Medical History: No Reported History Additional Past Medical History / Comment(s): ETOH abuse, depressed and suicidal in past History of Any Multi-Drug Resistant Organisms: None Reported Past Surgical History: No Surgical Hx Reported Past Anesthesia/Blood Transfusion Reactions: No Reported Reaction Past Psychological History: Anxiety, Bipolar, Depression Smoking Status: Current every day smoker Past Alcohol Use History: Abuse, Daily Past Drug Use History: Cocaine ALLERGIES: NO KNOWN DRUG ALLERGIES CHEMICAL DEPENDENCY HISTORY: as per HPI FAMILY PSYCHIATRIC/SUBSTANCE USE HISTORY: The patient reports that his mother was an alcoholic. SOCIAL HISTORY: Unchanged from last admission. Homeless. Patient was born and raised in [place] however moved around between [place], [place], . He reports that he spent most of his childhood in a bar. He states that he was exposed alcohol by his mother was a severe alcoholic. He states he began drinking at the age of 15. He is single, never , and has no children. He reports no current legal issues. He graduated from an [employer] program. MENTAL STATUS EXAM: General Appearance: Patient appears to be stated age is alert, directable, and attempts to cooperate. Patient appears to have fair hygiene and grooming. Balding with a prominent ospina. Nature themed tattoos on his bilateral arms. Behavior: Patient is seated without any agitated behavior. Eye contact is appropriate. Speech: Patient's speech is fluent and nonpressured. Mood/Affect: Patient reports their mood is depressed, affect is congruent and constricted. Suicidality/Homicidality: Patient denies having any homicidal ideation intent or plan. Denies any suicidal ideations intent or plan Perceptions: Patient denies any visual hallucinations and denies any auditory hallucinations Though content/process: There is no evidence of any delusional thought content and thought process is linear and goal-directed. Memory and concentration: AOX3, grossly intact for the purposes of this session. Can spell "WORLD" backwards Judgment and insight: Improving STRENGTHS/WEAKNESSES: Strength is that the patient is resilient. Weakness is that patient engages and polysubstance abuse (especially alcohol) and is h omeless. INTELLECT: average IMPRESSIONS: Major depressive disorder, recurrent, severe Alcohol use disorder Cluster B personality disorder PLAN: -Patient is admitted under voluntary status to [facility] for stabilization of psychiatric symptoms and safety. Patient signed adult voluntary form and medication consent and is placed in patient's chart. -Medications : Naltrexone 50 mg by mouth daily for alcohol use disorder Prozac 40 mg daily for depression/anxiety -Ativan and Haldol PRN for agitation/aggression -Patient was counselled on substance abuse and desired to cut back on use -Patient was informed of the risks, benefits and side effects of the medication and patient verbally consented to taking the medications. Patient signed med consent form and was placed in chart. -Internal Medicine consult to perform medical evaluation and physical. -NRT - nicotine patch -SW on board for discharge planning. Encourage patient to participate in groups to work on coping skills. 04/23/22 14:05
[2022-04-23 19:20] LABS: Appearance,Urine Clear (Clear); Bilirubin,Urine Negative (Negative); Blood,Urine Negative (Negative); Color,Urine Yellow; Glucose,Urine (UA) Negative (Negative); Ketones,Urine Negative (Negative); Leukocyte Esterase,Urine Negative (Negative); Nitrite,Urine Negative (Negative); PH, Urine 6.5 (5.0-8.0); Protein,Urine Trace (Negative); Specific Gravity,Urine 1.024 (1.001-1.035)
--- NOTE | 2022-04-23 20:35 | P.MDCNMH ---
History of Present Illness H&P Date: 04/23/22 Chief Complaint: Depression Patient is a pleasant 32-year-old gentleman. He is admitted to inpatient psychiatric facility due to suicide ideations and major depressive disorder. Patient has alcohol abuse history. He reports heavy alcohol use. His current social situation is that he is homeless. He denies any complaints of nausea vomiting fever or chills no shortness of breath. He does not take any home medications Review of Systems All systems: negative Past Medical History Past Medical History: No Reported History Additional Past Medical History / Comment(s): ETOH abuse, depressed and suicidal in past History of Any Multi-Drug Resistant Organisms: None Reported Past Surgical History: No Surgical Hx Reported Past Anesthesia/Blood Transfusion Reactions: No Reported Reaction Past Psychological History: Anxiety, Bipolar, Depression Additional Psychological History / Comment(s): depression and suicidal in past and present Smoking Status: Current every day smoker Past Alcohol Use History: Abuse, Daily Additional Past Alcohol Use History / Comment(s): drinks a pint a day per pt, used cocaine last a month ago Past Drug Use History: Cocaine - Past Family History Father Family Medical History: Liver Disease Medications and Allergies Home Medications Medication Instructions Recorded Confirmed Type Folic Acid 1 mg PO DAILY tab 04/16/22 04/22/22 Rx Thiamine [Vitamin B-1] 100 mg PO BID-W/MEALS tab 04/16/22 04/22/22 Rx FLUoxetine HCL [PROzac] 40 mg PO DAILY 30 Days cap 04/20/22 04/22/22 Rx Naltrexone HCl [Revia] 50 mg PO DAILY 30 Days tab 04/20/22 04/22/22 Rx Nicotine 21Mg/24Hr Patch [Habitrol] 1 patch TRANSDERM DAILY 30 Days 04/20/22 04/22/22 Rx patch Multivitamins, Thera [Multivitamin 1 tab PO DAILY 04/22/22 04/22/22 History (formulary)] Allergies Allergy/AdvReac Type Severity Reaction Status Date / Time No Known Allergies Allergy Verified 04/22/22 09:56 Physical Exam Osteopathic Statement: *. No significant issues noted on an osteopathic structural exam other than those noted in the History and Physical/Consult. Vitals: Vital Signs Temp Pulse Resp BP 04/23/22 06:23 97.4 F L 85 16 130/68 - Constitutional General appearance: average body habitus, cooperative - EENT Eyes: EOMI, PERRLA - Respiratory Respiratory: bilateral: CTA - Cardiovascular Rhythm: regular Heart sounds: normal: S1, S2 - Neurologic Neurologic: CNII-XII intact - Musculoskeletal Musculoskeletal: gait normal - Psychiatric Psychiatric: A&O x's 3 Cranial Nerve Examination - Cranial Nerves Cranial Nerve I- Olfactory: Intact Cranial Nerve II- Optic: Intact Cranial Nerve III- Oculomotor: Intact Cranial Nerve IV- Trochlear: Intact Cranial Nerve V- Trigeminal: Intact Cranial Nerve - Abducens: Intact Cranial Nerve VII- Facial: Intact Cranial Nerve VIII- Auditory: Intact Cranial Nerve IX- Glossopharyngeal: Intact Cranial Nerve X- Vagus: Intact Cranial Nerve XI- Accessory: Intact Cranial Nerve XII- Hypoglossal: Intact Results Labs: Abnormal Lab Results - Last 24 Hours (Table) 04/23/22 04/23/22 Range/Units 06:21 18:55 HDL Cholesterol 38.90 L (40.00-60.00) mg/dL Urine Protein Trace H (Negative) Assessment and Plan (1) Alcohol use disorder Current Visit: Yes Status: Chronic Priority: Medium Code(s): [id number] - SNOMED Code(s): 6034396 Plan: Alcohol use disorder -Education regarding all call cessation given Major depressive disorder Suicide ideation -Currently being managed by psychiatric team. He is currently on Prozac
[2022-04-24 07:10] VITALS: BP 122/67; PULSE 50; TEMP 97
[2022-04-24] MEDS: FLUoxetine HCL 20 MG CAP PO SCH (08:30)
[2022-04-24] MEDS: THIAMINE 100 MG TAB PO SCH (08:31)
[2022-04-24] MEDS: NALTREXONE HCL 50 MG TAB PO SCH (08:31)
[2022-04-24] MEDS: MULTIVITAMINS, THERA 1 EACH TAB PO SCH (08:31)
[2022-04-24] MEDS: NICOTINE 14MG/24HR PATCH TRANSDERM SCH (08:31)
[2022-04-24] MEDS: FOLIC ACID 1 MG TAB PO SCH (08:31)
--- NOTE | 2022-04-24 14:08 | P.DS ---
Providers Date of admission: 04/22/22 16:25 Expected date of discharge: 04/24/22 Attending physician: Asael Carl MD Consults: 04/22/22 16:33 Consult Physician Routine Consulting Provider: Vinny Yoon Consult Reason/Comments: history and physical/medical management Do you want consulting provider notified?: Yes Primary care physician: Stated None - Discharge Diagnosis(es) (1) Major depressive disorder, recurrent severe without psychotic features Status: Acute Priority: High (2) Alcohol use disorder Status: Chronic Priority: Medium (3) Cluster B personality disorder Status: Chronic Priority: Medium Hospital Course: Admission HPI: Patient is a single, unemployed, 32-year-old male with significant history of alcohol use disorder and depression who presented to the hospital on 04/21/2022 for suicidal ideation in the context of alcohol intoxication. Patient presented to the hospital on 04/21/2022 presenting with suicidal ideation. The patient was most recently released from the psychiatric unit on 04/20/2022 after a voluntary stay for suicidal ideation the context of heavy alcohol use. The patient is currently homeless. The patient reports that he was staying in the park across the street from the hospital however continued to feel hopeless and helpless and decided to come back to the hospital for suicidal ideation. He also reports that he relapsed into drinking alcohol as soon as he left the hospital. He and continues to endorse the same symptoms of hopelessness, helplessness, low motivation, and suicidal ideation. He was subsequently readmitted back to her psychiatric unit. The patient initially had a plan and goal to go to rehab however due to insurance issues, was unable to set this up. He continues to express a strong desire to go back to rehab. The patient has been drinking almost a pint of liquor per day. He reports his last drink was just prior to his presentation at the hospital. He has been to rehab numerous times including [place] earlier this year. He is not open with any outpatient substance abuse treatment more with Alcoholics Anonymous. He is currently homeless. He also engages in occasional methamphetamine use. He also reports a history of crack cocaine use as well. Patient has been previously diagnosed major depressive disorder and alcohol use disorder. The patient was last discharged from our psychiatric unit on 04/20/2022 on a regimen of Prozac and naltrexone. Patient was scheduled to follow-up with [facility] in [place] in [facility] however did not return to his home county. He wishes to stay in the [facility]. He does report a previous suicide attempt by overdose many years ago. Hospital course: Upon admission to the unit patient was initially endorsing suicidal ideation however his affect appeared to be nonchalant. The patient's primary concern was his homelessness. The patient also did not chart picker his medications when he was last discharged. He did not follow-up with any outpatient appointments. He also did not contact rehab under our recommendations. During this hospitalization, the patient remained primarily isolative to himself in his room, attended meals, addresses hygiene and grooming, and took his medications. As the patient displayed no significant criteria for continued inpatient hospitalization including a lack of suicidal ideation upon further assessment, the patient was subsequently discharged. The patient was provided resources to pursue for temporary housing. Mental status exam: General Appearance: Patient appears to be stated age is alert, pleasant, and cooperative. Patient is in no acute distress and has fair hygiene and grooming Behavior: Patient is calmly seated without any agitated behavior. Speech: Patient's speech is fluent and nonpressured. Mood/Affect: Patient reports their mood is "doing okay", affect is congruent and euthymic. Suicidality/Homicidality: Patient denies having any suicidal or homicidal ideation intent or plan. Perceptions: Patient denies any auditory or visual hallucinations. Though content/process: There is no evidence of any delusional thought content and thought process is linear and goal-directed. Memory and concentration: AOX3, grossly intact for the purposes of this session. Can spell "WORLD" backwards correctly. Judgment and insight: Improved with guarded prognosis Vital Signs Temp 97 F L 04/24/22 06:48 Pulse 50 L 04/24/22 06:48 Resp 16 04/24/22 06:48 BP 122/67 04/24/22 06:48 Pulse Ox 97 04/22/22 07:19 FiO2 Laboratory Results Estimated Ave Glu mg/dL 106 04/23/22 06:21 Hemoglobin A1c 5.3 % (0.0-6.0) 04/23/22 06:21 Triglycerides 118.00 mg/dL (0.00-149.00) 04/23/22 06:21 Cholesterol 109.00 mg/dL (0.00-200.00) 04/23/22 06:21 LDL Cholesterol, Calc 46.5 mg/dL (0.0-131.0) 04/23/22 06: VLDL Cholesterol, Calc 23.60 mg/dL (5.00-40.00) 04/23/22 06: HDL Cholesterol 38.90 mg/dL (40.00-60.00) L 04/23/22 06:21 Cholesterol/HDL Ratio 2.80 Ratio 04/23/22 06: TSH 2.370 mIU/L (0.465-4.680) 04/23/22 06:21 Urine Color Yellow 04/23/22 18:55 Urine Appearance Clear (Clear) 04/23/22 18:55 Urine pH 6.5 (5.0-8.0) 04/23/22 18:55 Ur Specific Rosine 1.024 (1.001-1.035) 04/23/22 18:55 Urine Protein Trace (Negative) H 04/23/22 18:55 Urine Glucose (UA) Negative (Negative) 04/23/22 18:55 Urine Ketones Negative (Negative) 04/23/22 18:55 Urine Blood Negative (Negative) 04/23/22 18:55 Urine Nitrite Negative (Negative) 04/23/22 18:55 Urine Bilirubin Negative (Negative) 04/23/22 18:55 Urine Urobilinogen 2.0 mg/dL (<2.0) 04/23/22 18:55 Ur Leukocyte Esterase Negative (Negative) 04/23/22 18:55 Urine Opiates Screen Not Detected (NotDetected) 04/22/22 07:35 Ur Oxycodone Screen Not Detected (NotDetected) 04/22/22 07:35 Urine Methadone Screen Not Detected (NotDetected) 04/22/22 07:35 Ur Propoxyphene Screen Not Detected (NotDetected) 04/22/22 07:35 Ur Barbiturates Screen Not Detected (NotDetected) 04/22/22 07:35 U Tricyclic Antidepress Not Detected (NotDetected) 04/22/22 07:35 Ur Phencyclidine Scrn Not Detected (NotDetected) 04/22/22 07:35 Ur Amphetamines Screen Not Detected (NotDetected) 04/22/22 07:35 U Methamphetamines Scrn Not Detected (NotDetected) 04/22/22 07:35 U Benzodiazepines Scrn Detected (NotDetected) H 04/22/22 07:35 Urine Cocaine Screen Not Detected (NotDetected) 04/22/22 07:35 U Marijuana (THC) Screen Not Detected (NotDetected) 04/22/22 07:35 Coronavirus (PCR) Not Detected (Not Detectd) 04/22/22 13:45 Allergies Allergy/AdvReac Type Severity Reaction Status Date / Time No Known Allergies Allergy Verified 04/22/22 09:56 Impression: Major depressive disorder, recurrent, severe Alcohol use disorder Cluster B personality disorder Plan: -Continue with discharge today as patient has improved and stabilized psychiatrically and is not currently an imminent threat to himself and/or others. Patient will remain at chronically elevated risk for harm to self and/or others due to his alcohol use disorder and his homelessness. -Continue medications: Prozac 40 mg by mouth daily for depression/anxiety ReVia 50 mg by mouth daily for alcohol use disorder -Patient was counseled on the need for medication compliance and appropriate follow-up at mental health and also primary care for medical issues. Patient verbalized understanding and agreed. -Social work to arrange for and conduct family meeting to ensure safety upon discharge and answer any questions/concerns. Social work also to arrange for patients follow up appointments with [facility] for psychiatric care along with follow up with primary care provider. -Patient counseled on abstaining from recreational drugs and marijuana and alcohol. Was informed/educated on the adverse effects on their physical and mental health. Patient verbally agreed and understood. Patient was offered substance abuse treatment however declined at this time. -Patient was instructed to return to the hospital or seek immediate medical care if their psychiatric or medical symptoms do worsen or reoccur. -Psychoeducation and supportive therapy provided to patient. Risks and benefits of pharmacological treatment versus the risks and benefits of nontreatment weight and discussed. Informed consent discussion held. Common side effects of psychotropics discussed such as, but not limited to headache, GI disturbance, sexual dysfunction, movement disorders, sedation, and orthostatic hypotension. Life threatening and blackbox warnings of prescribed medications also discussed. Potential risks of operating a vehicle or heavy machinery discussed with patient at length. Advised on importance of compliance and a reliable and responsible manner. Patient advised to review FDA consumer labeling of all med ications prior to taking. Patient verbalized understanding of potential risks, and agrees with current treatment plan. Patient advised to medically contact physician/emergency personnel if any acute changes in condition occur. Patient Condition at Discharge: Stable Plan - Discharge Summary Discharge Rx Participant: No New Discharge Prescriptions: New FLUoxetine HCL [PROzac] 40 mg PO DAILY 30 Days cap Naltrexone HCl [Revia] 50 mg PO DAILY 30 Days tab Discontinued Folic Acid 1 mg PO DAILY tab Thiamine [Vitamin B-1] 100 mg PO BID-W/MEALS tab Multivitamins, Thera [Multivitamin (formulary)] 1 tab PO DAILY FLUoxetine HCL [PROzac] 40 mg PO DAILY 30 Days cap Naltrexone HCl [Revia] 50 mg PO DAILY 30 Days tab Nicotine 21Mg/24Hr Patch [Habitrol] 1 patch TRANSDERM DAILY 30 Days patch Discharge Medication List FLUoxetine HCL [PROzac] 40 mg PO DAILY 30 Days cap 04/24/22 [Rx] Naltrexone HCl [Revia] 50 mg PO DAILY 30 Days tab 04/24/22 [Rx] Follow up Appointment(s)/Referral(s): [facility] [Outside] - 04/30/22 3:00 pm (With Ashlyn) None,Stated [Primary Care Provider] - 1-2 days [facility] [NON-STAFF] - 1 Week Patient Instructions/Handouts: How to Stop Smoking (DC), Depression (DC) Activity/Diet/Wound Care/Special Instructions: Pt verb understanding of d/c plan and was given his belongings and prescriptions. Pt stable and without s/s of distress. Belongings returned to the pt. Activity and diet as tolerated. Avoid the use of street drugs and alcohol. Take all medications as prescribed. When you are in need of refills on your medications please contact your medical provider and/or outpatient psychiatrist to have this done. Please go to scheduled outpatient appointment for aftercare treatment. If symptoms return or become worse, call the crisis line at and/or go to the nearest emergency room for evaluation Discharge Disposition: HOME SELF-CARE
== END 2022-04-24 13:35 | disposition home or self-care (01) | DRG 885 ==
LOC: EC 07:11 → 3MHU 16:25
PROVIDERS: ADMIT Psychiatry & Neurology Psychiatry; ATTEND Psychiatry & Neurology Psychiatry
DX: F33.2 Major depressive disorder, recurrent severe without psychotic features (principal); R45.851 Suicidal ideations; F10.129 Alcohol abuse with intoxication, unspecified; F15.90 Other stimulant use, unspecified, uncomplicated; F17.200 Nicotine dependence, unspecified, uncomplicated; F31.9 Bipolar disorder, unspecified; F41.9 Anxiety disorder, unspecified; F60.89 Other specific personality disorders; Z59.00 Homelessness unspecified; Z63.72 Alcoholism and drug addiction in family; Z79.899 Other long term (current) drug therapy; Z81.1 Family history of alcohol abuse and dependence; Z91.51 Personal history of suicidal behavior; Z20.822 Contact with and (suspected) exposure to COVID-19
CPT/HCPCS: 80061; 80306; 81003; 82075; 83036; 84443; 87635

== ENCOUNTER 2022-04-26 22:05 | Emergency (ER) | payer OTHER ==
[2022-04-26 22:15] VITALS: BP 137/75; PULSE 108; RESP 20; TEMP 98.7
[2022-04-26] MEDS ORDERED: LORazepam 1 MG TAB PO STA (23:14)
[2022-04-27 00:09] LABS: Amphetamine Screen,Urine Not Detected (NotDetected); Barbiturate Screen,Urine Not Detected (NotDetected); Benzodiazepines Screen,Urine Not Detected (NotDetected); Methadone Screen, Urine Not Detected (NotDetected); Opiate Screen,Urine Not Detected (NotDetected); Oxycodone Screen, Urine Not Detected (NotDetected); Phencyclidine Screen,Urine Not Detected (NotDetected); Tricyclic Antidepressant,Urine Not Detected (NotDetected); Urn Cannabinoid Scrn Not Detected (NotDetected)
[2022-04-27 00:10] LABS: Cocaine Screen,Urine Not Detected (NotDetected)
--- NOTE | 2022-04-27 01:14 | ED ---
Psych HPI - General Chief Complaint: Psychiatric Symptoms Stated Complaint: Mental Health Time Seen by Provider: 04/26/22 22:15 Source: patient Mode of arrival: ambulatory - History of Present Illness Initial Comments: 32-year-old male past history of depression, alcoholism presents emergency Department stating that he "can't take it anymore". Patient reports that he is angry and hopeless. Patient does not provide many details. Denies feeling suicidal or homicidal. He was just recently hospitalized. States that he was discharged and did not picker and packer his medications. He has not followed up with [facility] like scheduled. He admits he has been drinking today. Will not discuss with me any of his triggers. Denies illicit drug use. Patient not having any auditory or visual hallucinations. No other alleviating, precipitating or modifying factors - Related Data Previous Rx's Medication Instructions Recorded FLUoxetine HCL [PROzac] 40 mg PO DAILY 30 Days cap 04/24/22 Naltrexone HCl [Revia] 50 mg PO DAILY 30 Days tab 04/24/22 Allergies Allergy/AdvReac Type Severity Reaction Status Date / Time No Known Allergies Allergy Verified 04/26/22 22:14 Review of Systems ROS Statement: Those systems with pertinent positive or pertinent negative responses have been documented in the HPI. ROS Other: All systems not noted in ROS Statement are negative. Past Medical History Past Medical History: No Reported History Additional Past Medical History / Comment(s): ETOH abuse, depressed and suicidal in past History of Any Multi-Drug Resistant Organisms: None Reported Past Surgical History: No Surgical Hx Reported Past Anesthesia/Blood Transfusion Reactions: No Reported Reaction Past Psychological History: Anxiety, Bipolar, Depression Smoking Status: Current every day smoker Past Alcohol Use History: Abuse, Daily Past Drug Use History: Cocaine - Past Family History Father Family Medical History: Liver Disease General Exam Limitations: no limitations General appearance: alert, other (aggressive, angry) Head exam: Present: atraumatic, normocephalic, normal inspection Eye exam: Present: normal appearance, PERRL, EOMI. Absent: scleral icterus, conjunctival injection, periorbital swelling ENT exam: Present: normal exam, mucous membranes moist Neck exam: Present: normal inspection. Absent: tenderness, meningismus, lymphadenopathy Respiratory exam: Present: normal lung sounds bilaterally. Absent: respiratory distress, wheezes, rales, rhonchi, stridor Cardiovascular Exam: Present: regular rate, normal rhythm, normal heart sounds. Absent: systolic murmur, diastolic murmur, rubs, gallop, clicks GI/Abdominal exam: Present: soft, normal bowel sounds. Absent: distended, te nderness, guarding, rebound, rigid Extremities exam: Present: normal inspection, full ROM, normal capillary refill. Absent: tenderness, pedal edema, joint swelling, calf tenderness Back exam: Present: normal inspection Neurological exam: Present: alert, oriented X3, CN II-XII intact Psychiatric exam: Present: agitated Skin exam: Present: warm, dry, intact, normal color. Absent: rash Course Vital Signs 04/26/22 22:12 Temperature 98.7 F Pulse Rate 108 H Respiratory 20 Rate Blood Pressure 137/75 O2 Sat by Pulse 95 Oximetry Medical Decision Making - Medical Decision Making Upon arrival patient is placed into room 11. There are history and physical exam was performed. Patient is not suicidal or homicidal. He is intoxicated. EPS exam is performed after patient is clinically sober. He is well-known to the social work service here. Patient is homeless. He has been recently hospitalized twice in one discharge does not take his medications or follow-up. Psychiatrist does not feel that the patient's needs to be admitted at this time as he is not acutely suicidal or homicidal. Recommended that he take his medications and follow up with [facility]. Does have an appointment on . Return for any new or worsening symptoms. Patient discharged home in stable condition - Lab Data Lab Results 04/26/22 Range/Units 23:37 Urine Opiates Screen Not Detected (NotDetected) Ur Oxycodone Screen Not Detected (NotDetected) Urine Methadone Screen Not Detected (NotDetected) Ur Propoxyphene Screen Not Detected (NotDetected) Ur Barbiturates Screen Not Detected (NotDetected) U Tricyclic Antidepress Not Detected (NotDetected) Ur Phencyclidine Scrn Not Detected (NotDetected) Ur Amphetamines Screen Not Detected (NotDetected) U Methamphetamines Scrn Not Detected (NotDetected) U Benzodiazepines Scrn Not Detected (NotDetected) Urine Cocaine Screen Not Detected (NotDetected) U Marijuana (THC) Screen Not Detected (NotDetected) Disposition Clinical Impression: Depression, Alcoholic intoxication, Alcohol use disorder Disposition: HOME SELF-CARE Condition: Stable Instructions (If sedation given, give patient instructions): Depression (ED) Is patient prescribed a controlled substance at d/c from ED?: No Referrals: Nonstaff,Physician [Primary Care Provider] - 1-2 days Time of Disposition: 01:14
== END 2022-04-27 01:43 | disposition home or self-care (01) ==
LOC: EC 22:05
DX: F32.A Depression, unspecified (principal); F10.129 Alcohol abuse with intoxication, unspecified; F41.9 Anxiety disorder, unspecified; F17.200 Nicotine dependence, unspecified, uncomplicated; Y90.9 Presence of alcohol in blood, level not specified
CPT/HCPCS: 80306; 82075; 99284

== ENCOUNTER 2022-09-25 22:02 | Inpatient (IN) | payer MEDICAID, OTHER ==
[2022-09-25] MEDS ORDERED: LORazepam 2 MG/ML INJ IM STA (22:52)
--- NOTE | 2022-09-25 23:22 | ED ---
General Adult HPI - General Chief complaint: Psychiatric Symptoms Stated complaint: Mental Health Time Seen by Provider: 09/25/22 22:26 Source: patient, RN notes reviewed, old records reviewed Mode of arrival: ambulatory Limitations: no limitations - History of Present Illness Initial comments: Patient is a 32-year-old male with past medical history remarkable for polysubstance abuse he states he used methamphetamine a few days ago, as well as alcohol. States he feels anxious. Does have a history of alcohol withdrawals but states she has not been drinking as much. States he is depressed and has been suicidal in the past. Also endorses some suicidal ideation but denies any plans or attempts. Denies homicidal ideations, plans, attempts. Denies any visual or auditory hallucinations. He presents for further evaluation at this time. Denies chest pain, shortness breath, abdominal pain, nausea, vomiting. States he feels anxious. - Related Data Previous Rx's Medication Instructions Recorded FLUoxetine HCL [PROzac] 40 mg PO DAILY 30 Days cap 04/24/22 Naltrexone HCl [Revia] 50 mg PO DAILY 30 Days tab 04/24/22 Allergies Allergy/AdvReac Type Severity Reaction Status Date / Time No Known Allergies Allergy Verified 09/25/22 22:23 Review of Systems ROS Statement: Those systems with pertinent positive or pertinent negative responses have been documented in the HPI. Review of Systems: CONST: Denies fever EYES: Denies blurry vision ENT: Denies nasal congestion C/V: Denies Chest pain RESP: Denies shortness of breath GI: Denies abdominal pain : Denies dysuria SKIN: Denies rash. MSK: Denies joint pain. NEURO: Denies headache PSYCH: Denies homicidal ideations/plans/attempts. Denies visual or auditory hallucinations. He endorses suicidal ideations. Denies plans or attempts. ROS Other: All systems not noted in ROS Statement are negative. Past Medical History Past Medical History: No Reported History Additional Past Medical History / Comment(s): ETOH abuse, depressed and suicidal in past History of Any Multi-Drug Resistant Organisms: None Reported Past Surgical History: No Surgical Hx Reported Past Anesthesia/Blood Transfusion Reactions: No Reported Reaction Past Psychological History: Anxiety, Bipolar, Depression Smoking Status: Current every day smoker Past Alcohol Use History: Abuse, Daily, Heavy Past Drug Use History: Cocaine, Marijuana, Methamphetamine - Past Family History Father Family Medical History: Liver Disease General Exam - General Exam Comments Initial Comments: General: Appears in no acute distress. HEAD: Normal with no signs of head trauma. EYES: PERRLA, EOMI, conjunctiva normal, no discharge. Pupils are 3 mm and equal bilaterally. ENT: Hearing grossly intact, normal oropharynx. RESPIRATORY: Clear breath sounds bilaterally. No wheezes, rales, or rhonchi. C/V: Regular rate and rhythm. S1 and S2 auscultated, no edema, peripheral pulses 2+ and intact throughout ABD: Abd is soft, nontender, nondistended EXT: Normal range of motion, no obvious deformity SKIN: No rashes or lesions observed on exposed skin. NEURO: Alert and oriented 4. No tongue fasciculations. No tremors. No obvious signs of alcohol withdrawal. Limitations: no limitations Course Vital Signs 09/25/22 09/26/22 22:20 01:13 Temperature 98.4 F Pulse Rate 118 H 99 Respiratory 20 18 Rate Blood Pressure 93/50 104/50 O2 Sat by Pulse 98 Oximetry Medical Decision Making - Medical Decision Making Based on the patient's presentation and physical exam, I do believe he requires psychiatric evaluation. He is placed in green scrubs. Suicide precautions were reviewed. Severe was ordered. BAT is slightly elevated and will be sober shortly. No evidence of alcohol withdrawal this time. Patient does appear agitated and anxious and will be given IM Ativan. Vital signs are within acceptable limits. UDS is pending at this time. At this time, patient is medically cleared for evaluation by psychiatry. Disposition is pending psychiatric evaluation. EPS is notified. EPS evaluated the patient. They requested blood work prior to admission. Workup was unremarkable. UDS did return and was positive for amphetamines, methamphetamines, benzos. Covid is negative. At this time patient does meet criteria for inpatient psychiatric admission. Patient will be admitted to inpatient psychiatry in stable condition. - Lab Data Result diagrams: 09/26/22 02:45 09/26/22 02:45 Lab Results 09/26/22 09/26/22 09/26/22 Range/Units 01:39 02:45 02:45 WBC 9.7 (3.8-10.6) k/uL RBC 4.22 L (4.30-5.90) m/uL Hgb 13.1 (13.0-17.5) gm/dL Hct 35.6 L (39.0-53.0) % MCV 84.5 (80.0-100.0) fL MCH 31.1 (25.0-35.0) pg MCHC 36.8 (31.0-37.0) g/dL RDW 12.0 (11.5-15.5) % Plt Count 231 (150-450) k/uL MPV 8.0 Neutrophils % 67 % Lymphocytes % 23 % Monocytes % 7 % Eosinophils % 1 % Basophils % 1 % Neutrophils # 6.5 (1.3-7.7) k/uL Lymphocytes # 2.2 (1.0-4.8) k/uL Monocytes # 0.7 (0-1.0) k/uL Eosinophils # 0.1 (0-0.7) k/uL Basophils # 0.1 (0-0.2) k/uL Sodium 136 L (137-145) mmol/L Potassium 4.2 (3.5-5.1) mmol/L Chloride 105 (98-107) mmol/L Carbon Dioxide 24 (22-30) mmol/L Anion Gap 7 mmol/L BUN 18 (9-20) mg/dL Creatinine 0.70 (0.66-1.25) mg/dL Est GFR (CKD-EPI)AfAm >90 (>60 ml/min/1.73 sqM) Est GFR (CKD-EPI)NonAf >90 (>60 ml/min/1.73 sqM) Glucose 112 H (74-99) mg/dL Calcium 8.4 (8.4-10.2) mg/dL Total Bilirubin 1.3 (0.2-1.3) mg/dL AST 168 H (17-59) U/L ALT 39 (4-49) U/L Alkaline Phosphatase 62 (38-126) U/L Total Protein 6.6 (6.3-8.2) g/dL Albumin 4.2 (3.5-5.0) g/dL Urine Opiates Screen (NotDetected) Ur Oxycodone Screen (NotDetected) Urine Methadone Screen (NotDetected) Ur Propoxyphene Screen (NotDetected) Ur Barbiturates Screen (NotDetected) U Tricyclic Antidepress (NotDetected) Ur Phencyclidine Scrn (NotDetected) Ur Amphetamines Screen (NotDetected) U Methamphetamines Scrn (NotDetected) U Benzodiazepines Scrn (NotDetected) Urine Cocaine Screen (NotDetected) U Marijuana (THC) Screen (NotDetected) Serum Alcohol <10 mg/dL Coronavirus (PCR) Not Detected (Not Detectd) 09/26/22 Range/Units 04:26 WBC (3.8-10.6) k/uL RBC (4.30-5.90) m/uL Hgb (13.0-17.5) gm/dL Hct (39.0-53.0) % MCV (80.0-100.0) fL MCH (25.0-35.0) pg MCHC (31.0-37.0) g/dL RDW (11.5-15.5) % Plt Count (150-450) k/uL MPV Neutrophils % % Lymphocytes % % Monocytes % % Eosinophils % % Basophils % % Neutrophils # (1.3-7.7) k/uL Lymphocytes # (1.0-4.8) k/uL Monocytes # (0-1.0) k/uL Eosinophils # (0-0.7) k/uL Basophils # (0-0.2) k/uL Sodium (137-145) mmol/L Potassium (3.5-5.1) mmol/L Chloride (98-107) mmol/L Carbon Dioxide (22-30) mmol/L Anion Gap mmol/L BUN (9-20) mg/dL Creatinine (0.66-1.25) mg/dL Est GFR (CKD-EPI)AfAm (>60 ml/min/1.73 sqM) Est GFR (CKD-EPI)NonAf (>60 ml/min/1.73 sqM) Glucose (74-99) mg/dL Calcium (8.4-10.2) mg/dL Total Bilirubin (0.2-1.3) mg/dL AST (17-59) U/L ALT (4-49) U/L Alkaline Phosphatase (38-126) U/L Total Protein (6.3-8.2) g/dL Albumin (3.5-5.0) g/dL Urine Opiates Screen Not Detected (NotDetected) Ur Oxycodone Screen Not Detected (NotDetected) Urine Methadone Screen Not Detected (NotDetected) Ur Propoxyphene Screen Not Detected (NotDetected) Ur Barbiturates Screen Not Detected (NotDetected) U Tricyclic Antidepress Not Detected (NotDetected) Ur Phencyclidine Scrn Not Detected (NotDetected) Ur Amphetamines Screen Detected H (NotDetected) U Methamphetamines Scrn Detected H (NotDetected) U Benzodiazepines Scrn Detected H (NotDetected) Urine Cocaine Screen Not Detected (NotDetected) U Marijuana (THC) Screen Not Detected (NotDetected) Serum Alcohol mg/dL Coronavirus (PCR) (Not Detectd) Disposition Clinical Impression: Encounter for psychiatric assessment, Polysubstance abuse Disposition: ADMITTED IP TO THIS [facility] Condition: Stable Referrals: None,Stated [Primary Care Provider] - 1-2 days
[2022-09-25] MEDS ORDERED: SODIUM CHLORIDE 0.9% 1,000 ML IV STA (23:41)
[2022-09-25] MEDS ORDERED: LORazepam 2 MG/ML INJ IV STA (23:45)
[2022-09-26 02:52] LABS: HCT 35.6 % (39.0-53.0); HGB 13.1 gm/dL (13.0-17.5); MCH 31.1 pg (25.0-35.0); MCHC 36.8 g/dL (31.0-37.0); MCV 84.5 fL (80.0-100.0); RBC 4.22 m/uL (4.30-5.90); WBC 9.7 k/uL (3.8-10.6)
[2022-09-26 02:53] LABS: Basophils # (A) 0.1 k/uL (0-0.2); Basophils % (A) 1 %; Eosinophils # (A) 0.1 k/uL (0-0.7); Eosinophils % (A) 1 %; Lymphocytes # (A) 2.2 k/uL (1.0-4.8); Lymphocytes % (A) 23 %; Monocytes # (A) 0.7 k/uL (0-1.0); Monocytes % (A) 7 %; Neutrophils # (A) 6.5 k/uL (1.3-7.7); Neutrophils % (A) 67 %; Platelet Count 231 k/uL (150-450)
[2022-09-26 03:03] LABS: ALT 39 U/L (4-49); AST 168 U/L (17-59); African American GFR (CKD) >90 (>60 ml/min/1.73 sqM); Albumin 4.2 g/dL (3.5-5.0); Alcohol <10 mg/dL; Alkaline Phosphatase 62 U/L (38-126); Anion Gap 7 mmol/L; Blood Urea Nitrogen 18 mg/dL (9-20); Calcium 8.4 mg/dL (8.4-10.2); Carbon Dioxide 24 mmol/L (22-30); Chloride 105 mmol/L (98-107); Glucose 112 mg/dL (74-99); Non-African American GFR(CKD) >90 (>60 ml/min/1.73 sqM); Sodium 136 mmol/L (137-145); Total Bilirubin 1.3 mg/dL (0.2-1.3); Total Protein 6.6 g/dL (6.3-8.2)
[2022-09-26 03:39] LABS: Potassium 4.2 mmol/L (3.5-5.1)
[2022-09-26 04:51] LABS: Cocaine Screen,Urine Not Detected (NotDetected); Phencyclidine Screen,Urine Not Detected (NotDetected); Urn Cannabinoid Scrn Not Detected (NotDetected)
[2022-09-26 04:52] LABS: Amphetamine Screen,Urine Detected (NotDetected); Barbiturate Screen,Urine Not Detected (NotDetected); Benzodiazepines Screen,Urine Detected (NotDetected); Methadone Screen, Urine Not Detected (NotDetected); Opiate Screen,Urine Not Detected (NotDetected); Oxycodone Screen, Urine Not Detected (NotDetected); Tricyclic Antidepressant,Urine Not Detected (NotDetected)
[2022-09-26] MEDS ORDERED: HALOPERIDOL LACTATE 5 MG/ML 1 ML VIAL IM PRN (05:30)
[2022-09-26] MEDS ORDERED: ACETAMINOPHEN TAB 325 MG TAB PO PRN (05:30)
[2022-09-26] MEDS ORDERED: MAG HYDROX/AL HYDROX/SIMETH 355 ML BOTTLE PO PRN (05:30)
[2022-09-26] MEDS ORDERED: MAGNESIUM HYDROXIDE 2,400 MG/10 ML CUP PO PRN (05:30)
[2022-09-26] MEDS ORDERED: LORazepam 1 MG TAB PO PRN ×3 (05:30)
[2022-09-26 05:46] LABS: Appearance,Urine Clear (Clear); Bilirubin,Urine Negative (Negative); Blood,Urine Negative (Negative); Color,Urine Yellow; Glucose,Urine (UA) Negative (Negative); Ketones,Urine 1+ (Negative); Leukocyte Esterase,Urine Trace (Negative); Mucus,Urine Few /hpf; Nitrite,Urine Negative (Negative); Protein,Urine Trace (Negative); RBC,Urine 1 /hpf (0-5); Specific Gravity,Urine 1.031 (1.001-1.035); Urobilinogen,Urine <2.0 mg/dL (<2.0); WBC,Urine 9 /hpf (0-5)
[2022-09-26] MEDS ORDERED: haloperidoL 5 MG TAB PO PRN (06:32)
[2022-09-26] MEDS ORDERED: hydrOXYzine HCL 50 MG/ML 1 ML VIAL IM PRN (06:33)
[2022-09-26] MEDS ORDERED: hydrOXYzine pamoate 25 MG CAP PO PRN (06:33)
[2022-09-26] MEDS: chlordiazePOXIDE 25 MG CAP PO SCH ×2 (08:11→16:01)
[2022-09-26] MEDS: MULTIVITAMINS, THERA 1 EACH TAB PO SCH (08:11)
[2022-09-26] MEDS: THIAMINE 100 MG TAB PO SCH (08:11)
[2022-09-26] MEDS: FOLIC ACID 1 MG TAB PO SCH (08:11)
[2022-09-26] MEDS ORDERED: NICOTINE 14MG/24HR PATCH TRANSDERM SCH (09:00)
[2022-09-26] MEDS ORDERED: diazePAM 5 MG TAB PO SCH (09:00)
[2022-09-26] MEDS: DULoxetine HCL 20 MG CAPSULE.DR PO SCH ×2 (11:41→20:37)
--- NOTE | 2022-09-26 17:20 | P.HP ---
Psychiatric H&P - . H&P Date: 09/26/22 History & Physical: Allergies Allergy/AdvReac Type Severity Reaction Status Date / Time No Known Allergies Allergy Verified 09/25/22 22:23 Vital Signs Temp 98.2 F 09/26/22 06:14 Pulse 112 H 09/26/22 06:14 Resp 18 09/26/22 06:14 BP 99/62 09/26/22 06:14 Pulse Ox 97 09/26/22 06:14 FiO2 Intake & Output 09/25/22 09/26/22 09/26/22 18:59 06:59 18:59 Weight 75.466 kg Laboratory Last Values WBC 9.7 k/uL (3.8-10.6) 09/26/22 02:45 RBC 4.22 m/uL (4.30-5.90) L 09/26/22 02:45 Hgb 13.1 gm/dL (13.0-17.5) 09/26/22 02:45 Hct 35.6 % (39.0-53.0) L 09/26/22 02:45 MCV 84.5 fL (80.0-100.0) 09/26/22 02:45 MCH 31.1 pg (25.0-35.0) 09/26/22 02:45 MCHC 36.8 g/dL (31.0-37.0) 09/26/22 02:45 RDW 12.0 % (11.5-15.5) 09/26/22 02:45 Plt Count 231 k/uL (150-450) 09/26/22 02:45 MPV 8.0 09/26/22 02:45 Neutrophils % 67 % 09/26/22 02:45 Lymphocytes % 23 % 09/26/22 02:45 Monocytes % 7 % 09/26/22 02:45 Eosinophils % 1 % 09/26/22 02:45 Basophils % 1 % 09/26/22 02:45 Neutrophils # 6.5 k/uL (1.3-7.7) 09/26/22 02:45 Lymphocytes # 2.2 k/uL (1.0-4.8) 09/26/22 02:45 Monocytes # 0.7 k/uL (0-1.0) 09/26/22 02:45 Eosinophils # 0.1 k/uL (0-0.7) 09/26/22 02:45 Basophils # 0.1 k/uL (0-0.2) 09/26/22 02:45 Sodium 136 mmol/L (137-145) L 09/26/22 02:45 Potassium 4.2 mmol/L (3.5-5.1) 09/26/22 02:45 Chloride 105 mmol/L (98-107) 09/26/22 02:45 Carbon Dioxide 24 mmol/L (22-30) 09/26/22 02:45 Anion Gap 7 mmol/L 09/26/22 02:45 BUN 18 mg/dL (9-20) 09/26/22 02:45 Creatinine 0.70 mg/dL (0.66-1.25) 09/26/22 02:45 Est GFR (CKD-EPI)AfAm >90 (>60 ml/min/1.73 sqM) 09/26/22 02:45 Est GFR (CKD-EPI)NonAf >90 (>60 ml/min/1.73 sqM) 09/26/22 02:45 Glucose 112 mg/dL (74-99) H 09/26/22 02:45 Calcium 8.4 mg/dL (8.4-10.2) 09/26/22 02:45 Total Bilirubin 1.3 mg/dL (0.2-1.3) 09/26/22 02:45 AST 168 U/L (17-59) H 09/26/22 02:45 ALT 39 U/L (4-49) 09/26/22 02:45 Alkaline Phosphatase 62 U/L (38-126) 09/26/22 02:45 Total Protein 6.6 g/dL (6.3-8.2) 09/26/22 02:45 Albumin 4.2 g/dL (3.5-5.0) 09/26/22 02:45 Urine Color Yellow 09/26/22 04:26 Urine Appearance Clear (Clear) 09/26/22 04:26 Urine pH 6.0 (5.0-8.0) 09/26/22 04:26 Ur Specific [place] 1.031 (1.001-1.035) 09/26/22 04:26 Urine Protein Trace (Negative) H 09/26/22 04:26 Urine Glucose (UA) Negative (Negative) 09/26/22 04:26 Urine Ketones 1+ (Negative) H 09/26/22 04:26 Urine Blood Negative (Negative) 09/26/22 04:26 Urine Nitrite Negative (Negative) 09/26/22 04:26 Urine Bilirubin Negative (Negative) 09/26/22 04:26 Urine Urobilinogen <2.0 mg/dL (<2.0) 09/26/22 04:26 Ur Leukocyte Esterase Trace (Negative) H 09/26/22 04:26 Urine RBC 1 /hpf (0-5) 09/26/22 04:26 Urine WBC 9 /hpf (0-5) H 09/26/22 04:26 Urine Mucus Few /hpf (None) H 09/26/22 04:26 Urine Opiates Screen Not Detected (NotDetected) 09/26/22 04:26 Ur Oxycodone Screen Not Detected (NotDetected) 09/26/22 04:26 Urine Methadone Screen Not Detected (NotDetected) 09/26/22 04:26 Ur Propoxyphene Screen Not Detected (NotDetected) 09/26/22 04:26 Ur Barbiturates Screen Not Detected (NotDetected) 09/26/22 04:26 U Tricyclic Antidepress Not Detected (NotDetected) 09/26/22 04:26 Ur Phencyclidine Scrn Not Detected (NotDetected) 09/26/22 04:26 Ur Amphetamines Screen Detected (NotDetected) H 09/26/22 04:26 U Methamphetamines Scrn Detected (NotDetected) H 09/26/22 04:26 U Benzodiazepines Scrn Detected (NotDetected) H 09/26/22 04:26 Urine Cocaine Screen Not Detected (NotDetected) 09/26/22 04:26 U Marijuana (THC) Screen Not Detected (NotDetected) 09/26/22 04:26 Serum Alcohol <10 mg/dL 09/26/22 02:45 Coronavirus (PCR) Not Detected (Not Detectd) 09/26/22 01:39 09/26/22 08:54 IDENTIFYING DATA: Patient is a single, unemployed, 32-year-old [place] male who is presenting with suicidal ideation and substance use. HPI: Patient was admitted on to the psychiatric unit due to suicidal ideation with plan to jump in front of traffic or jump off of a bridge. Patient reports he had obtained methamphetamine from a woman on the street and continued to walk for a few days. He also drank liquor and beer to counteract the effects of methamphetamine. He endorses drinking daily in the past week with last drink being 09/25/22. He reports a long history of polysubstance use with his drugs of choice being methamphetamine and alcohol. He reports having been to several rehabs in the past and is interested in rehabilitation treatment following discharge from this hospitalization. Regarding his mood, patient reports hopelessness, anhedonia, low mood ongoing throughout his life, and feeling helpless. He endorses withdrawing from his family members because he does not want them to be embarrassed of him. He calls himself "a piece of garbage" due to his struggle with substances. Due to his mood and comorbid substance use, patient reports that he contemplated suicide including planning to jump into traffic. In psychiatric review of systems, he states sleep and appetite are fine at baseline. He denies symptoms consistent with anna. He currently denies active suicidal ideation but is interested in getting treatment for his mental health. He denies homicidal ideation. He denies access to firearms. He reports that while using methamphetamine, he has seen shadows and heard vague AH. Apart from the time he is intoxicated on methamphetamine, he denies symptoms of psychosis including auditory and visual hallucinations and paranoia. PSYCH HX: Previous psychiatrist: None outpatient Therapist: None outpatient Previous meds: Effexor, Prozac 40 mg daily and naltrexone 50 mg Hospitalizations: Last hospitalization in 04/2022 NSSI: Denies SA: Denies PMH: Past Medical History: No Reported History Additional Past Medical History / Comment(s): ETOH abuse, depressed and suicidal in past History of Any Multi-Drug Resistant Organisms: None Reported Past Surgical History: No Surgical Hx Reported Past Anesthesia/Blood Transfusion Reactions: No Reported Reaction Past Psychological History: Anxiety, Bipolar, Depression ALLERGIES: Denies PCP: Denies Head injuries: Denies Seizures: Denies SUBSTANCE HX: Methamphetamine: Started 2 years ago and uses it occasionally Alcohol: Reports started drinking when he was 15 years old and started using more in 20s (daily). Cocaine (snort): Started occasionally when he was 18 years old. More frequently when he was 20 years old. Then more heavy use in 2019. Ecstasy: started in high school. Then more frequently when he was 20 years old. Tobacco: 0.5 ppd Cannabis: Denies Denies using other substances Rehabs in the past: [facility], [facility], [facility]. SOCIAL/LEGAL HX: He grew up in [place] until he was 5 years old. Then moved to [place] until 9 years old. Then moved to [place], [place] until 16 years old. Then moved to [place] and returned back to [place] to be with his mother. Father (from cancer) and mother when patient was 17 years old. He lived with his maternal aunt in [place] and then moved in with cousin's family. He last saw his biological father when he was 5 years old. Never and no children. Currently single. He has sister and niece living in [place]. Highest level of education: GED. Was pursuing forestry in [place] Vocation: Many jobs, including dish washing, [employer], [employer], [employer] Legal problems: Domestic assault, burglary, DUI, destruction of property, resisting arrest FAM PSYCH HX: Mother - Alcohol DEVELOPMENT: Denies complications MENTAL STATUS EXAM: General Appearance: Patient appears to be stated age is alert, directable. Bald and has ospina. Patient appears to have fair hygiene and grooming. Behavior: Patient is seated without any agitated behavior. Cooperative to interview Speech: Patient's speech is fluent and nonpressured Mood/Affect: Patient reports their mood is depressed, affect is congruent and constricted. Suicidality/Homicidality: Patient denies having any homicidal ideation intent or plan. Denies active suicidal ideation currently but recently had suicidal ideation with plan Perceptions: Patient denies any auditory and visual hallucinations Though content/process: Linear and goal oriented Memory and concentration: AOX3, grossly intact for the purposes of this session. Can spell "WORLD" backwards Judgment and insight: Poor STRENGTHS/WEAKNESSES: Strength is resilience. 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 Patient signed adult voluntary form and medication consent and both are placed in patient's chart. -Medications : Cymbalta 20 mg BID for depression - Haldol/Vistaril PO/IM for agitation - WA protocol, including Thiamin and folic acid -Patient was counselled on substance abuse and desired to cut back on use. Motivational interviewing. -Patient was informed of the risks, benefits and side effects of the medication and patient verbally consented to taking the medications. -Internal Medicine consult to perform medical evaluation and physical. -SW on board for discharge planning. Encourage patient to participate in groups to work on coping skills. 09/26/22 09:06 09/26/22 16:48 09/26/22 17:19
[2022-09-27] MEDS: DULoxetine HCL 20 MG CAPSULE.DR PO SCH ×2 (08:29→21:25)
[2022-09-27] MEDS: FOLIC ACID 1 MG TAB PO SCH (08:29)
[2022-09-27] MEDS: MULTIVITAMINS, THERA 1 EACH TAB PO SCH (08:30)
[2022-09-27] MEDS: THIAMINE 100 MG TAB PO SCH (08:30)
[2022-09-27 12:19] LABS: Chol/HDL Ratio 3.37 Ratio; LDL Cholesterol,Calculated 45.3 mg/dL (0.0-131.0)
--- NOTE | 2022-09-27 17:39 | P.PN ---
Progress Note - Text Progress Note Date: 09/27/22 Interval History: Patient was seen wandering the hallways and was directable and agreeable to sp myron with typewriter operator automatic. He states he would like to be discharged. He displays little insight into his condition and that he does not plan to continue the medication outpatient. He does not display any coping skills. When this provider mentioned rehab, patient stated that he was interested. At this time patient denies any suicidal or homical ideations, intent or plan. Patient denies any auditory, visu al hallucinations and denies any paranoia or delusions. Patient denies any side effects from the medications and has been compliant with meds. Mental Status Exam: General Appearance: Patient appears to be stated age is alert, directable. Bald and has ospina. Patient appears to have fair hygiene and grooming. Behavior: Patient is seated without any agitated behavior. Cooperative to interview Speech: Patient's speech is fluent and nonpressured Mood/Affect: Patient reports their mood is depressed, affect is congruent and constricted. Suicidality/Homicidality: Patient denies having any homicidal ideation intent or plan. Denies active suicidal ideation currently but recently had suicidal ideation with plan Perceptions: Patient denies any auditory and visual hallucinations Though content/process: Linear and goal oriented Memory and concentration: AOX3, grossly intact for the purposes of this session. 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 Patient signed adult voluntary form and medication consent and both are placed in patient's chart. -Medications : Cymbalta 20 mg BID for depression - Haldol/Vistaril PO/IM for agitation - CIWA protocol, including Thiamin and folic acid -Patient was counselled on substance abuse and desired to cut back on use. Motivational interviewing. Discuss rehab -Patient was informed of the risks, benefits and side effects of the medication and patient verbally consented to taking the medications. -Internal Medicine consult to perform medical evaluation and physical. -SW on board for discharge planning. Encourage patient to participate in groups to work on coping skills.
[2022-09-27 22:13] VITALS: RESP 16
--- NOTE | 2022-09-27 22:41 | P.CONS ---
History of Present Illness - Reason for Consult Consult date: 09/27/22 - History of Present Illness The patient is a 32-year-old male with a PMH of polysubstance abuse and EtOH abuse who was brought into the emergency room for suicidal ideation. The patient was admitted to the mental health unit he was seen and evaluated. The patient states that he has been consuming varying amounts of malt liquor daily and also recently used methamphetamine. He is currently experiencing homel essness and states that he does not wish to have housing as he does not like the responsibility. He also smokes 5 cigarettes a day. Denied any physical complaints at the time of interview. Denied chest discomfort, shortness of breath, fever, chills, cough, nausea, vomiting, abdominal pain, diarrhea. Review of systems: Pertinent positives and negatives as discussed in HPI, a complete review of systems was performed and all other systems are negative. Physical examination: General: non toxic, no distress, appears at stated age, normal weight Derm: no unusual rashes/lesions, no unusual ecchymoses, warm, dry Head: atraumatic, normocephalic, symmetric Eyes: EOMI, no lid lag, anicteric sclera ENT: Nose and ears atraumatic, no thrush, no pharyngeal erythema Neck: trachea midline, supple Mouth: no lip lesion, mucus membranes moist Cardiovascular: S1S2 reg, no murmur, no edema Lungs: CTA bilateral, no rhonchi, no rales , no accessory muscle use Abdominal: soft, nontender to palpation, no guarding Ext: no gross muscle atrophy, no contractures, Neuro: No gross focal neuro deficits noted Psych: Alert, oriented, appropriate affect Assessment/plan Methamphetamine and alcohol abuse -Advised on the importance of cessation -CIWA protocol -Thiamine, multivitamin Depression with suicidal ideation -As per psychiatry Thank you for allowing us to participate in the care of this patient. We will follow peripherally. Do not hesitate to contact us with questions. Someone can be reached from the [facility] hospitalist group at all hours of the day at [phone]. Past Medical History Past Medical History: No Reported History Additional Past Medical History / Comment(s): ETOH abuse, depressed and suicidal in past History of Any Multi-Drug Resistant Organisms: None Reported Past Surgical History: No Surgical Hx Reported Past Anesthesia/Blood Transfusion Reactions: No Reported Reaction Past Psychological History: Anxiety, Bipolar, Depression Additional Psychological History / Comment(s): depression and suicidal in past and present Smoking Status: Current every day smoker Past Alcohol Use History: Abuse, Daily, Heavy Additional Past Alcohol Use History / Comment(s): drinks a pint a day per pt, used cocaine last a month ago Past Drug Use History: Cocaine, Marijuana, Methamphetamine - Past Family History Father Family Medical History: Liver Disease Medications and Allergies Home Medications Medication Instructions Recorded Confirmed Type FLUoxetine HCL [PROzac] 40 mg PO DAILY 30 Days cap 04/24/22 Rx Naltrexone HCl [Revia] 50 mg PO DAILY 30 Days tab 04/24/22 Rx Allergies Allergy/AdvReac Type Severity Reaction Status Date / Time No Known Allergies Allergy Verified 09/25/22 22:23 Physical Exam Vitals: Vital Signs Temp Pulse Resp BP Pulse Ox 09/27/22 22:12 97.3 F L 75 16 114/73 98 Results CBC & Chem 7: 09/26/22 02:45 09/26/22 02:45 Labs: Abnormal Lab Results - Last 24 Hours (Table) 09/26/22 Range/Units 02:45 Triglycerides 157.00 H (0.00-149.00) mg/dL HDL Cholesterol 32.30 L (40.00-60.00) mg/dL TSH 8.450 H (0.465-4.680) mIU/L
[2022-09-28] MEDS: DULoxetine HCL 20 MG CAPSULE.DR PO SCH (08:51)
[2022-09-28] MEDS: THIAMINE 100 MG TAB PO SCH (08:52)
[2022-09-28] MEDS: FOLIC ACID 1 MG TAB PO SCH (08:52)
[2022-09-28] MEDS: MULTIVITAMINS, THERA 1 EACH TAB PO SCH (08:52)
--- NOTE | 2022-09-28 13:25 | P.PN ---
Progress Note - Text Progress Note Date: 09/28/22 Interval History: Patient was seen wandering the hallways and was directable and agreeable to cha sanches with production underwriter. Patient spoke briefly about why he came to the hospital. He states that "I was using a lot of meth and alcohol because I missed the bus". He states that he is supposed to be going to [facility] and has a bed there. He claims that he is originally from [place] like to return the area. He states that he is doing a bit better being on Hospital and also back on medications. He claims that the Cymbalta was upsetting his stomach during the day and would prefer to take it at nighttime wants. He claims that he is sleeping fairly throughout the night. He claims as a fair appetite at this time. He does not display any coping skills. At this time patient denies any suicidal or homical ideations, intent or plan. Patient denies any auditory, visual hallucinations and denies any paranoia or delusions. Patient denies any side effects from the medications and has been compliant with meds. Mental Status Exam: General Appearance: Patient appears to be short in stature, bald, has a ospina, stated age is alert, directable. Patient appears to have fair hygiene and grooming. Behavior: Patient is seated without any agitated behavior. Cooperative Speech: Patient's speech is fluent and nonpressured Mood/Affect: Patient reports their mood is improving mildly, affect is congruent and constricted. Suicidality/Homicidality: Patient denies having any homicidal ideation intent or plan. Denies active suicidal ideation and intent. Perceptions: Patient denies any auditory and visual hallucinations Though content/process: Linear and goal oriented. Focus on discharge. Memory and concentration: AOX3, grossly intact for the purposes of this session Judgment and insight: Improving mildly. 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 Patient signed adult voluntary form and medication consent and both are placed in patient's chart. -Medications : Change Cymbalta 30 mg QHS for depression/anxiety. - Haldol/Vistaril PO/IM for agitation - CIWA protocol, including Thiamine and folic acid -Patient was informed of the risks, benefits and side effects of the medication and patient verbally consented to taking the medications. -Internal Medicine consult to perform medical evaluation and physical. -SW on board for discharge planning. Encourage patient to participate in groups to work on coping skills. likely discharge tomorrow to [facility] if patient continues to improve.
[2022-09-28] MEDS ORDERED: DULoxetine HCL 30 MG CAPSULE.DR PO SCH (21:00)
[2022-09-29 06:02] VITALS: BP 116/58; PULSE 58; TEMP 97.8
[2022-09-29] MEDS: THIAMINE 100 MG TAB PO SCH (08:54)
[2022-09-29] MEDS: FOLIC ACID 1 MG TAB PO SCH (08:54)
[2022-09-29] MEDS: MULTIVITAMINS, THERA 1 EACH TAB PO SCH (08:54)
--- NOTE | 2022-09-29 10:18 | P.DS ---
Providers Date of admission: 09/26/22 05:29 Expected date of discharge: 09/29/22 Attending physician: Norris Dowell MD Consults: 09/26/22 05:30 Consult Physician Routine Consulting Provider: Vinny Yoon Consult Reason/Comments: For H & P for Medical Follow Up Do you want consulting provider notified?: Yes Primary care physician: Stated None - Discharge Diagnosis(es) (1) Depressive disorder Current Visit: Yes Status: Acute Priority: High (2) Methamphetamine use disorder, severe Current Visit: Yes Status: Acute Priority: High (3) Alcohol use disorder, severe, dependence Current Visit: Yes Status: Acute Priority: High (4) Cocaine use disorder, severe, in sustained remission Current Visit: Yes Status: Acute Priority: Low (5) Nicotine dependence Current Visit: Yes Status: Acute Priority: Low Hospital Course: Admission HPI: Admission note was completed by Dr Young "Patient is a single, unemployed, 32-year-old [place] male who is presenting with suicidal ideation and substance use. Patient was admitted on to the psychiatric unit due to suicidal ideation with plan to jump in front of traffic or jump off of a bridge. Patient reports he had obtained methamphetamine from a woman on the street and continued to walk for a few days. He also drank liquor and beer to counteract the effects of methamphetamine. He endorses drinking daily in the past week with last drink being 09/25/22. He reports a long history of polysubstance use with his drugs of choice being methamphetamine and alcohol. He reports having been to several rehabs in the past and is interested in rehabilitation treatment following discharge from this hospitalization. Regarding his mood, patient reports hopelessness, anhedonia, low mood ongoing throughout his life, and feeling helpless. He endorses withdrawing from his family members because he does not want them to be embarrassed of him. He calls himself "a piece of garbage" due to his struggle with substances. Due to his mood and comorbid substance use, patient reports that he contemplated suicide including planning to jump into traffic. In psychiatric review of systems, he states sleep and appetite are fine at baseline. He denies symptoms consistent with anna. He currently denies active suicidal ideation but is interested in getting treatment for his mental health. He denies homicidal ideation. He denies access to firearms. He reports that while using methamphetamine, he has seen shadows and heard vague AH. Apart from the time he is intoxicated on methamphetamine, he denies symptoms of psychosis including auditory and visual hallucinations and paranoia." Hospital course: Upon admission to the unit patient was directable and agreeable to commence treatment and signed adult voluntary form . Patient got along well with other patients on the unit and followed unit protocol. Patient was compliant with the medications throughout hospital course. Patient was started on Cymbalta and adjusted the dose to 30 mg daily at bedtime for depression/anxiety. Patient did have mild upset stomachafter taking the initial two-three doses of the medication however that improved. Patient spoke of his stressors and engaged in therapy both group and individual. Patient was also seen by medical team for history and physical exam. Throughout the course of the hospitalization patient gradually improved with regards to mood, anxiety, sleep and returned back to their baseline level of functioning. On the day of discharge patient denied any suicidal or homicidal ideations intent or plan denied any auditory or visual hallucinations. Patient endorsed wanting to live for his health and sobriety. The patient denied any access to guns or weapons. Patient denied any paranoia and did not endorse any delusions. Patient does have a significant history of substance abuse and was counseled on abstaining from all substances including alcohol and marijuana. Patient was offered however declined inpatient substance- abuse rehab. Patient does state that he has a bed at [facility] in [facility] and will go directly there upon d/c. Patient was also counseled on the medications and need for regular compliance and was encouraged to follow-up with their outpatient appointment for mental health and also for primary care. Mental status exam: General Appearance: Patient appears to be short in stature, bald, stated age is alert, pleasant, and cooperative. Patient is in no acute distress and has improved hygiene and grooming Behavior: Patient is calmly seated without any agitated behavior. Speech: Patient's speech is fluent and nonpressured. Mood/Affect: Patient reports their mood is "fine", affect is congruent and euthymic. Suicidality/Homicidality: Patient denies having any suicidal or homicidal ideation intent or plan. Perceptions: Patient denies any auditory or visual hallucinations. Though content/process: There is no evidence of any delusional thought content and thought process is linear and goal-directed. more future oriented Memory and concentration: AOX3, grossly intact for the purposes of this session. Can spell "WORLD" backwards correctly. Judgment and insight: chronically poor, however has improved with guarded prognosis Impression: Depressive disorder unspecified Methamphetamine use disorder severe dependence Alcohol use disorder severe dependence Cocaine use disorder severe in sustained remission Nicotine dependence Plan: -Continue with discharge today as patient has improved and stabilized psychiatrically and is not currently an imminent threat to himself and/or others. Patient will remain at chronically elevated risk for harm to self and/or others due to his polysubstance abuse. -Continue medications: Cymbalta 30 mg daily at bedtime for depression/anxiety -Patient was counseled on the need for medication compliance and appropriate follow-up at mental health and also primary care for medical issues. Patient verbalized understanding and agreed. -Social work to help arrange for patient's discharge today to [facility] in [place]. Social work also to arrange for patients follow up appointments for psychiatric care along with follow up with primary care provider. -Patient counseled on abstaining from recreational drugs and marijuana and alcohol. Was informed/educated on the adverse effects on their physical and mental health. Patient verbally agreed and understood. -Patient was instructed to return to the hospital or seek immediate medical care if their psychiatric or medical symptoms do worsen or reoccur. Allergies Allergy/AdvReac Type Severity Reaction Status Date / Time No Known Allergies Allergy Verified 09/25/22 22:23 Laboratory Results WBC 9.7 k/uL (3.8-10.6) 09/26/22 02:45 RBC 4.22 m/uL (4.30-5.90) L 09/26/22 02:45 Hgb 13.1 gm/dL (13.0-17.5) 09/26/22 02:45 Hct 35.6 % (39.0-53.0) L 09/26/22 02:45 MCV 84.5 fL (80.0-100.0) 09/26/22 02:45 MCH 31.1 pg (25.0-35.0) 09/26/22 02:45 MCHC 36.8 g/dL (31.0-37.0) 09/26/22 02:45 RDW 12.0 % (11.5-15.5) 09/26/22 02:45 Plt Count 231 k/uL (150-450) 09/26/22 02:45 MPV 8.0 09/26/22 02:45 Neutrophils % 67 % 09/26/22 02:45 Lymphocytes % 23 % 09/26/22 02:45 Monocytes % 7 % 09/26/22 02:45 Eosinophils % 1 % 09/26/22 02:45 Basophils % 1 % 09/26/22 02:45 Neutrophils # 6.5 k/uL (1.3-7.7) 09/26/22 02:45 Lymphocytes # 2.2 k/uL (1.0-4.8) 09/26/22 02:45 Monocytes # 0.7 k/uL (0-1.0) 09/26/22 02:45 Eosinophils # 0.1 k/uL (0-0.7) 09/26/22 02:45 Basophils # 0.1 k/uL (0-0.2) 09/26/22 02:45 Sodium 136 mmol/L (137-145) L 09/26/22 02:45 Potassium 4.2 mmol/L (3.5-5.1) 09/26/22 02:45 Chloride 105 mmol/L (98-107) 09/26/22 02:45 Carbon Dioxide 24 mmol/L (22-30) 09/26/22 02:45 Anion Gap 7 mmol/L 09/26/22 02:45 BUN 18 mg/dL (9-20) 09/26/22 02:45 Creatinine 0.70 mg/dL (0.66-1.25) 09/26/22 02:45 Est GFR (CKD-EPI)AfAm >90 (>60 ml/min/1.73 sqM) 09/26/22 02:45 Est GFR (CKD-EPI)NonAf >90 (>60 ml/min/1.73 sqM) 09/26/22 02:45 Glucose 112 mg/dL (74-99) H 09/26/22 02:[address] Glu mg/dL 109 09/26/22 02:45 Hemoglobin A1c 5.4 % (0.0-6.0) 09/26/22 02:45 Calcium 8.4 mg/dL (8.4-10.2) 09/26/22 02:45 Total Bilirubin 1.3 mg/dL (0.2-1.3) 09/26/22 02:45 AST 168 U/L (17-59) H 09/26/22 02:45 ALT 39 U/L (4-49) 09/26/22 02:45 Alkaline Phosphatase 62 U/L (38-126) 09/26/22 02:45 Total Protein 6.6 g/dL (6.3-8.2) 09/26/22 02:45 Albumin 4.2 g/dL (3.5-5.0) 09/26/22 02:45 Triglycerides 157.00 mg/dL (0.00-149.00) H 09/26/22 02:45 Cholesterol 109.00 mg/dL (0.00-200.00) 09/26/22 02:45 LDL Cholesterol, Calc 45.3 mg/dL (0.0-131.0) 09/26/22 02:45 VLDL Cholesterol, Calc 31.40 mg/dL (5.00-40.00) 09/26/22 02:45 HDL Cholesterol 32.30 mg/dL (40.00-60.00) L 09/26/22 02:45 Cholesterol/HDL Ratio 3.37 Ratio 09/26/22 02:45 TSH 8.450 mIU/L (0.465-4.680) H 09/26/22 02:45 Free T4 1.290 ng/dL (0.800-1.800) 09/26/22 02:45 Urine Color Yellow 09/26/22 04:26 Urine Appearance Clear (Clear) 09/26/22 04:26 Urine pH 6.0 (5.0-8.0) 09/26/22 04:26 Ur Specific [place] 1.031 (1.001-1.035) 09/26/22 04:26 Urine Protein Trace (Negative) H 09/26/22 04:26 Urine Glucose (UA) Negative (Negative) 09/26/22 04:26 Urine Ketones 1+ (Negative) H 09/26/22 04:26 Urine Blood Negative (Negative) 09/26/22 04:26 Urine Nitrite Negative (Negative) 09/26/22 04:26 Urine Bilirubin Negative (Negative) 09/26/22 04:26 Urine Urobilinogen <2.0 mg/dL (<2.0) 09/26/22 04:26 Ur Leukocyte Esterase Trace (Negative) H 09/26/22 04:26 Urine RBC 1 /hpf (0-5) 09/26/22 04:26 Urine WBC 9 /hpf (0-5) H 09/26/22 04:26 Urine Mucus Few /hpf (None) H 09/26/22 04:26 Urine Opiates Screen Not Detected (NotDetected) 09/26/22 04:26 Ur Oxycodone Screen Not Detected (NotDetected) 09/26/22 04:26 Urine Methadone Screen Not Detected (NotDetected) 09/26/22 04:26 Ur Propoxyphene Screen Not Detected (NotDetected) 09/26/22 04:26 Ur Barbiturates Screen Not Detected (NotDetected) 09/26/22 04:26 U Tricyclic Antidepress Not Detected (NotDetected) 09/26/22 04:26 Ur Phencyclidine Scrn Not Detected (NotDetected) 09/26/22 04:26 Ur Amphetamines Screen Detected (NotDetected) H 09/26/22 04:26 U Methamphetamines Scrn Detected (NotDetected) H 09/26/22 04:26 U Benzodiazepines Scrn Detected (NotDetected) H 09/26/22 04:26 Urine Cocaine Screen Not Detected (NotDetected) 09/26/22 04:26 U Marijuana (THC) Screen Not Detected (NotDetected) 09/26/22 04:26 Serum Alcohol <10 mg/dL 09/26/22 02:45 Coronavirus (PCR) Not Detected (Not Detectd) 09/26/22 01:39 Vital Signs Temp 97.8 F 09/29/22 06:00 Pulse 58 L 09/29/22 06:00 Resp 16 09/29/22 06:00 BP 116/58 09/29/22 06:00 Pulse Ox 97 09/29/22 06:00 FiO2 Patient Condition at Discharge: Stable Plan - Discharge Summary New Discharge Prescriptions: New DULoxetine HCL [Cymbalta] 30 mg PO HS 30 Days cap Discontinued FLUoxetine HCL [PROzac] 40 mg PO DAILY 30 Days cap Naltrexone HCl [Revia] 50 mg PO DAILY 30 Days tab Discharge Medication List DULoxetine HCL [Cymbalta] 30 mg PO HS 30 Days cap 09/29/22 [Rx] Follow up Appointment(s)/Referral(s): 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 Take all prescriptions as prescribed. When you are in need of refills on your medications, please contact your medical provider and/or outpatient psychiatrist to have this done. Please go to scheduled outpatient appointment for aftercare treatment. If symptoms return or become worse, call the crisis line at and/or go to the nearest emergency room for evaluation. Discharge Disposition: OTHER INSTITUTION NOT DEFINED
== END 2022-09-29 11:30 | disposition other institution (70) | DRG 885 ==
LOC: EC 22:02 → 3MHU 09-26 05:29
PROVIDERS: ADMIT Psychiatry & Neurology Psychiatry; ATTEND Psychiatry & Neurology Psychiatry
PROC: HZ2ZZZZ Detoxification Services for Substance Abuse Treatment (ICD-10-PCS; principal; 2022-09-26)
DX: F31.9 Bipolar disorder, unspecified (principal); R45.851 Suicidal ideations; F15.259 Other stimulant dependence with stimulant-induced psychotic disorder, unspecified; Z20.822 Contact with and (suspected) exposure to COVID-19; F41.9 Anxiety disorder, unspecified; Z71.41 Alcohol abuse counseling and surveillance of alcoholic; Z71.51 Drug abuse counseling and surveillance of drug abuser; F34.1 Dysthymic disorder; F17.210 Nicotine dependence, cigarettes, uncomplicated; F14.21 Cocaine dependence, in remission; F10.20 Alcohol dependence, uncomplicated; Z79.899 Other long term (current) drug therapy; Z59.00 Homelessness unspecified; Z71.6 Tobacco abuse counseling
CPT/HCPCS: 36415; 80053; 80061; 80306; 80320; 81001; 82075; 83036; 84439; 84443; 85025; 87635; 96374; 99285

== ENCOUNTER 2024-11-27 22:09 | Emergency (ER) | payer OTHER ==
--- NOTE | 2024-11-27 23:04 | ED ---
Alcohol HPI - General Chief Complaint: Alcohol Stated Complaint: Intoxicated Time Seen by Provider: 11/27/24 22:54 Source: patient, RN notes reviewed, old records reviewed Mode of arrival: ambulatory - History of Present Illness Initial Comments: This is a 34-year-old male to the ER for evaluation patient presents today for severe alcohol intoxication today. Patient is brought in by PD found sleeping outside and severely intoxicated. 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 ROS Other: All systems not noted in ROS Statement are negative. Past Medical History Past Medical History: No Reported History Additional Past Medical History / Comment(s): ETOH abuse, depressed and suicidal in past History of Any Multi-Drug Resistant Organisms: None Reported Past Surgical History: No Surgical Hx Reported Past Anesthesia/Blood Transfusion Reactions: No Reported Reaction Past Psychological History: Anxiety, Bipolar, Depression Smoking Status: Current every day smoker Past Alcohol Use History: Abuse, Daily, Heavy Past Drug Use History: Cocaine, Marijuana, Methamphetamine - Past Family History Father Family Medical History: Liver Disease General Exam General appearance: alert, in no apparent distress Head exam: Present: atraumatic, normocephalic, normal inspection Eye exam: Present: normal appearance, PERRL, EOMI. Absent: scleral icterus, conjunctival injection, periorbital swelling ENT exam: Present: normal exam, mucous membranes moist Neck exam: Present: normal inspection. Absent: tenderness, meningismus, lymphadenopathy Respiratory exam: Present: normal lung sounds bilaterally. Absent: respiratory distress, wheezes, rales, rhonchi, stridor Cardiovascular Exam: Present: regular rate, normal rhythm, normal heart sounds. Absent: systolic murmur, diastolic murmur, rubs, gallop, clicks GI/Abdominal exam: Present: soft, normal bowel sounds. Absent: distended, tenderness, guarding, rebound, rigid Extremities exam: Present: normal inspection, full ROM, normal capillary refill. Absent: tenderness, pedal edema, joint swelling, calf tenderness Back exam: Present: normal inspection Neurological exam: Present: alert, oriented X3, CN II-XII intact Psychiatric exam: Present: normal affect, normal mood Skin exam: Present: warm, dry, intact, normal color. Absent: rash Course Vital Signs 11/27/24 22:11 Temperature 97.5 F L Pulse Rate 99 Respiratory 18 Rate Blood Pressure 105/61 O2 Sat by Pulse 98 Oximetry - Reevaluation(s) Reevaluation #1: 11/27/24 23:12 Medical records reviewed Reevaluation #2: 11/27/24 23:12 Patient symptoms unchanged Reevaluation #3: 11/27/24 23:12 Patient informed of results and questions answered Reevaluation #4: Was pt. sent in by a medical professional or institution (, PA, AQUATIC SCIENTIST, urgent care, hospital, or correction...) When possible be specific @ -no Did you speak to anyone other than the patient for history (EMS, parent, family, police, friend...)? What history was obtained from this source @ -no Did you review nursing and triage notes (agree or disagree)? Why? @ -agree Are old charts reviewed (outside hosp., previous admission, EMS record, old EKG, old radiological studies, urgent care reports/EKG's, correction records)? Report findings @ -yes Differential Diagnosis (chest pain, altered mental status, abdominal pain women, abdominal pain men, vaginal bleeding, weakness, fever, dyspnea, syncope, headache, dizziness, GI bleed, back pain, seizure, CVA, palpatations, mental health, musculoskeletal)? @ -prior EKG interpreted by me (3pts min.). @ -yes X-rays interpreted by me (1pt min.). @ -yes negative for acute disease CT interpreted by me (1pt min.). @ -no U/S interpreted by me (1pt. min.). @ -no What testing was considered but not performed or refused? (CT, X-rays, U/S, labs)? Why? @ -none What meds were considered but not given or refused? Why? @ -none Did you discuss the management of the patient with other professionals (professionals i.e. , PA, AQUATIC SCIENTIST, lab, RT, psych nurse, director social service, strand galvanizer, teacher, audit officer, rn case management)? Give summary @ -no Was smoking cessation discussed for >3mins.? @ -no Was critical care preformed (if so, how long)? @ -no Were there social determinants of health that impacted care today? How? (Homelessness, low income, unemployed, alcoholism, drug addiction, transportatio n, low edu. Level, literacy, decrease access to med. care, detention, rehab)? @ -none Was there de-escalation of care discussed even if they declined (Discuss DNR or withdrawal of care, Hospice)? DNR status @ -no What co-morbidities impacted this encounter? (DM, HTN, Smoking, COPD, CAD, Cancer, CVA, ARF, Chemo, Hep., AIDS, mental health diagnosis, sleep apnea, morbid obesity)? @ -none Was patient admitted / discharged? Hospital course, mention meds given and route, prescriptions, significant lab abnormalities, going to OR and other pertinent info. @ - Undiagnosed new problem with uncertain prognosis? @ -no Drug Therapy requiring intensive monitoring for toxicity (Heparin, Nitro, Insulin, Cardizem)? @ -no Were any procedures done? @ -no Diagnosis/symptom? @ - Acute, or Chronic, or Acute on Chronic? @ -Acute Uncomplicated (without systemic symptoms) or Complicated (systemic symptoms)? @ -Complicated Side effects of treatment? @ -no Exacerbation, Progression, or Severe Exacerbation? @ -exacerbation Poses a threat to life or bodily function? How? (Chest pain, USA, NV, pneumonia, PE, COPD, DKA, ARF, appy, cholecystitis, CVA, Diverticulitis, Homicidal, Suicidal, threat to staff... and all critical care pts) @ -yes Reevaluation #5: Differential Altered Mental Status: Hypoglycemia, DKA, hypercapnia, ETOH, overdose, CO poisoning, trauma, myxedema coma, HTN encephalopathy, infection, encephalitis, psychosis, intercranial hemorrhage, hepatic encephalopathy, meningitis, CVA, this is not meant to be an all-inclusive list Medical Decision Making - Medical Decision Making 34 male to ER for evaluation of alcohol intoxication. Patient has not having any complaints here in the ER but can be discharged home Disposition Clinical Impression: Alcohol use disorder, Alcoholic intoxication Disposition: HOME SELF-CARE Condition: Fair Instructions (If sedation given, give patient instructions): Alcohol Intoxication (ED) Is patient prescribed a controlled substance at d/c from ED?: No Referrals: None,Stated [Primary Care Provider] - 1-2 days Time of Disposition: 23:55
[2024-11-28 05:23] VITALS: BP 110/64; PULSE 98; RESP 16; TEMP 97.9
== END 2024-11-28 05:28 | disposition home or self-care (01) ==
LOC: EC 22:09
DX: F10.129 Alcohol abuse with intoxication, unspecified (principal); F17.200 Nicotine dependence, unspecified, uncomplicated
CPT/HCPCS: 99284